=== PATIENT | female | born 1940 | race Caucasian/White ===

== ENCOUNTER 2021-01-31 23:58 | Inpatient (IN) | payer MEDICARE, SELFPAY ==
[2021-01-31] VITALS (14 sets, daily range): BP systolic 95–143; BP diastolic 55–81; PULSE 92–123; RESP 16–20; TEMP 36.6–37.3; O2SAT 93–99; BMI 26.4
--- NOTE | ~2021-01-31 | US_ITS ---
EXAMINATION: US pelvic limited EXAM DATE: 02/02/2021 14:36 INDICATION: Blood clots in the catheter. Recent bladder tumor removed. TECHNIQUE: Pelvic transabdominal sonogram was performed. There are multiple grayscale and Doppler im ages available for interpretation. Correlation is made to CT scan from yesterday. FINDINGS: There is Richey catheter within the bladder, with homogeneously hypoechoic material partiall y surrounding the Richey balloon anchor. Could be proteinaceous urine. I suspect blood clot would typi milan be more heterogeneous, but correlate with urinalysis. Exam is limited from overlying small yenni l. IMPRESSION: Mildly distended bladder with diffusely homogeneously hypoechoic fluid, could be protein aceous urine or blood in urine. Clot would more typically be heterogeneous, but exam is limited from overlying small bowel. Reviewed, dictated and finalized at location A. IMPRESSION: Mildly distended bladder with diffusely homogeneously hypoechoic f luid, could be proteinaceous urine or blood in urine. Clot would more typically be heterogeneous, but exam is limited from overlying small bowel.
--- NOTE | ~2021-01-31 | XR_ITS ---
XR chest 1V portable DATE: 02/04/2021 09:57 INDICATION: Shortness of breath, new onset TECHNIQUE: Portable AP chest on 02/04/2021 at 0951 hours COMPARISON: CT chest abdomen pelvis FINDINGS: Cardiomegaly. Aortic arch calcification. There is asymmetric prominence overlying right hilar area. No hilar mass lesion or lymphadenopathy is noted on the 02/01/2021 CT chest examination. Consider possible superimposed consolidation. There is interval patchy infiltrate in the mid and particularly lower lung zones. Pulmonary vascularity appears within normal limits. Minimal if any pleural effusion. No pneumothorax. Bilateral glenohumeral osteoarthritis. IMPRESSION: Cardiomegaly Bilateral mid and lower lung infiltrates, particularly overlying right hilar area and both lower lung s Reviewed, dictated and finalized at location A. IMPRESSION: Cardiomegaly Bilateral mid and lower lung infiltrates, particularly overlying right hilar ar ea and both lower lungs
--- NOTE | ~2021-01-31 | CT_ITS ---
EXAMINATION: CT chest abdomen pelvis wo con EXAM DATE: 02/01/2021 15:10 INDICATION: Staging of bladder cancer. TECHNIQUE: Spiral CT of the chest, abdomen and pelvis was performed without contrast. Axial, davidson l and sagittal images were reviewed. Coronal maximum intensity pixel images of chest reviewed. The dose-length product (DLP) for this examination was 852.02 mGy-cm. The exposure was tailored accordin g to patient size (auto mA exposure control), and iterative reconstruction (ASIR) was used as additio nal dose reduction technique. There is no prior study for comparison. FINDINGS: CHEST: There is pleural-based left lower lobe lobular opacity measuring about 1.5 cm, could be infec tious or postinfectious with a couple of satellite nodules. Can't exclude malignancy. Several right-s ided nodules 3 mm or less most likely postinfectious. There is moderate-sized pericardial effusion. The interventricular septum is perceptible, suggesting patient is anemic. Tracheobronchial tree is patent. There is no mediastinal, hilar or axillary lymphadenopathy. There is no pneumothorax. There is cardiomegaly. The main, central pulmonary arteries are dilated which can indicate elevated p ulmonary arterial pressure, pulmonary arterial hypertension. There is mild to moderate coronary art erial calcification, arterial sclerosis. ABDOMEN PELVIS: Bilateral adrenal gland nodularity, could be adenomas but attention to this on follow -up. The liver, spleen, adrenal glands and pancreas are otherwise unremarkable. Gallbladder is unre markable. No biliary obstruction. There are bilateral renal lesions most likely cysts and hemorrhag ic cysts. Can't exclude solid renal mass in the setting. There is mild to moderate right-sided hydrou reteronephrosis to the UVJ. Richey catheter within a collapsed bladder, with bladder gas. Some amount of pelvic prolapse is present. There is some thickening of the bladder base wall suspected. The uter us is not identified and has likely been surgically resected. The bladder is unremarkable. There is no retroperitoneal or pelvic lymphadenopathy. Tortuosity of the abdominal aorta. The appendix is not positively visualized. There is no pericecal inflammatory change to suggest appe ndicitis. The stomach and small bowel are unremarkable. There is moderate amount of colonic stool. There is rectosigmoid resection with a left lower quadrant colostomy. No free intraperitoneal gas. Large lesion within the L4 vertebral body with fat attenuation, and thickened trabeculation, a heman gioma. There are no osteoblastic or osteolytic lesions identified. 3 right hip lag screws. There is m oderate lumbar levoscoliosis, mild to moderate thoracic dextroscoliosis. Advanced lumbar spondylosis. IMPRESSION: 1. No definite metastatic disease. 2. Left lower lobe 1.4 cm lobular opacity, could be infectious or postinfectious. Malignancy also po ssible; recommend PET/CT or 3 month follow-up chest, abdomen pelvis CT. 3. Bilateral adrenal nodularity, most likely adenomas but attention to this on follow-up CT. 4. Bilateral renal cysts and hemorrhagic cysts. Can't exclude solid mass. 5. Mild to moderate right hydroureteronephrosis to the UVJ. 6. Bladder wall thickening inferiorly. Some pelvic prolapse. 7. Cardiomegaly. Moderate pericardial effusion. 8. Colostomy. Reviewed, dictated and finalized at location A. IMPRESSION: 1. No definite metastatic disease. 2. Left lower lobe 1.4 cm lobular opacity, could be infectious or postinfectio us. Malignancy also possible; recommend PET/CT or 3 month follow-up chest, abdo men pelvis CT. 3. Bilateral adrenal nodularity, most likely adenomas but attention to this on follow-up CT. 4. Bilateral renal cys
--- NOTE | ~2021-01-31 | XR_ITS ---
XR abdomen/kub 1V DATE: 02/04/2021 12:45 INDICATION: Epigastric abdominal pain. Bladder surgery 5 days ago. Status post colostomy 40 years ago . TECHNIQUE: Portable supine AP views COMPARISON: 02/01/2021 CT chest abdomen pelvis FINDINGS: Left colostomy leg. No bowel obstruction is evident. No visceromegaly is detected. There are several pins in the proximal right femur. There is rotatory levoscoliosis and severe degene rative disc disease lumbar spine. There is dextroscoliosis and degenerative spurring of the thoracic spine. Cardiomegaly. (Moderate pericardial effusion was documented on 02/01/2021 CT examination.) Aortic arch calcification. IMPRESSION: Nonspecific abdomen Reviewed, dictated and finalized at Location A. Reviewed, dictated and finalized at location A. IMPRESSION: Nonspecific abdomen
--- NOTE | 2021-01-31 12:25 | ADMGEN ---
This patient, Tosiha Devine, was admitted to Medical Room 349-01. Patient/family oriented to hospital policies and general routines including ID bracelet, bed and alarms, visiting hours, pain management, procedures, bathroom and other care routines, personal items, smoking policy, room service/diet, and visiting hours. Information on how to activate the Rapid Response Team has been discussed. Patient/Family are encouraged to report perceived risks to care and to ask questions if they do not understand what they are told or what they should do.
--- NOTE | 2021-01-31 14:26 | WPDHPUPDATE1 ---
History and Physical Update Update Date/Time: 01/31/21 14:26 History and Physical has been reviewed, including an updated exam of the patient. There are NO changes in the patient's condition. Risks, benefits, and alternatives have been discussed and questions answered. Patient agrees to proceed with procedure.
--- NOTE | 2021-01-31 14:26 | WPDANESEPPF ---
Anes - Initial Pre Proc Eval Procedure: Operation Date: 01/31/21 16:45 Proposed Procedures p Cystoscopy, Evacuation Bladder Clots - Librado Amaro MD s Possible Trans Urethral Resection Bladder Tumor - Librado Amaro MD Date/Time: 01/31/21 14:26 Surgeon: Juana Cruz MD Pre Op Diagnosis: Bladder Tumor Patient Data Age: 80 Gender: F Height: 1.68 m Weight: 74.2 kg Allergies Allergy/AdvReac Type Severity Reaction Status Date / Time Sulfa (Sulfonamide Allergy Itching Verified 01/31/21 12:34 Antibiotics) Home Medications Medication Instructions Recorded Confirmed Type PreserVision AREDS 1 tablet PO DAILY 01/31/21 01/31/21 History aspirin 81 mg PO DAILY 01/31/21 01/31/21 History atorvastatin 40 mg PO DAILY 01/31/21 01/31/21 History cholecalciferol (vitamin D3) 25 mcg PO DAILY 01/31/21 01/31/21 History [Vitamin D3] digoxin 125 mcg PO DAILY 01/31/21 01/31/21 History diltiazem HCl 180 mg PO DAILY 01/31/21 01/31/21 History furosemide 40 mg PO DAILY 01/31/21 01/31/21 History insulin lispro [Humalog Alexis 1 unit SUBCUT DAILY 01/31/21 01/31/21 History KwikPen U-100] liraglutide [Victoza 2-Miguelito] 1.8 mg SUBCUT DAILY 01/31/21 01/31/21 History metformin 1,000 mg PO BID 01/31/21 01/31/21 History metoprolol succinate 12.5 mg PO BID 01/31/21 01/31/21 History pantoprazole [Protonix] 40 mg IV DAILY 01/31/21 01/31/21 History polysaccharide iron complex 150 mg PO BID 01/31/21 01/31/21 History [Ferrex 150] potassium chloride 20 meq PO DAILY 01/31/21 01/31/21 History raloxifene 60 mg PO DAILY 01/31/21 01/31/21 History sertraline 50 mg PO DAILY 01/31/21 01/31/21 History sitagliptin [Januvia] 50 mg PO DAILY 01/31/21 01/31/21 History Patient hx anesthesia problems: none Family hx anesthesia problems: none PMFSH Past Medical History Medical History (Updated 01/31/21 @ 14:34 by Caitlyn Boss APRN) Atrial fibrillation CAD (coronary artery disease) CHF (congestive heart failure) Colon cancer Depression Diabetes Diastolic dysfunction HTN (hypertension) Hyperlipidemia Mitral regurgitation MARÍA (obstructive sleep apnea) Family History Family History Mother Alzheimer's dementia Sibling Breast cancer Bladder cancer Sibling Bone cancer Social History Social History Smoking status: Never smoker Alcohol intake: never Substance use: never Spiritual care concerns: No Anes - Eval Final PreProcedure Day of Procedure 01/31/21 14:26 Patient weight: overweight Heart: regular rate and rhythm Lungs: clear to auscultation and normal air movement Airway: Mallampati scale class II Neurological: alert and oriented Last oral intake: >/= 8 hours ASA classification: IV Emergent: no Anesthetic plan: proceed Anesthesia type and monitoring: general GIVS and LMA Informed Consent: The patient's anesthetic plan and its attendant risks and benefits were discussed with the patient/family/POA. Questions were solicited and answers provided to the satisfaction of the patient/family/POA.
--- NOTE | 2021-01-31 14:26 | WPDURCON ---
Assessment and Plan Assessment and plan (1) Gross hematuria: Code(s): R31.0 - Gross hematuria Status: Acute Assessment and Plan: Will need a urine culture to rule out infection at some point. Plan to go to the OR today: Cystoscopy, bladder clot evacuation, possible TURBT. Obtain consent and keep NPO. Irrigated with 800cc of NS at the bedside, I pulled out a large amount of blood clots without resolution and I was unable to clear the urine. 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 She had what was thought to be a UTI the week prior and was treated with Macrobid but then developed dysuria and gross hematuria following her antibiotics, she became weak, SOB and dizzy and went back to her PCP yesterday when he sent her to the ER. She has a history of recently being anemic and a HGB of 6.[address] Her CT abdomen/pelvis done yesterday at [place] showed gross hematuria and clots in the bladder with a bladder mass in the right posterolateral bladder wall measuring 4.7cm and mild right hydronephrosis but without any renal stones. Her Creatinine at [place] today was 1.28 which is slightly improved from the day before when it was 1.51, WBC today was 10.1 and UA shows >20 RBC's but is negative for WBC's or nitrates. She denies any history of hematuria or UTI's and was not aware of this bladder tumor. Initially a 16fr catheter was placed but then was replaced by a 3 way contreras to start CBI, she has had a total of 5 3L bags since beginning it prior to transfer last night, her urine is still red in color, but draining to gravity. She is not noting any abdominal distention or tenderness, just pain in the urethra. I irrigated 800cc of NS manually at the bedside and continued to pull large amounts of blood clots from her bladder without resolution. CBI was stopped. Review of Systems Cardiovascular: Cardiovascular: Denies chest pain Respiratory: Respiratory: Reports no additional respiratory complaints Gastrointestinal: Gastrointestinal: Denies abdominal pain, Denies nausea and Denies vomiting Genitourinary: Genitourinary: Reports hematuria, Reports dysuria, Denies pelvic pain and Denies flank pain PMFSH Past Medical History Medical History (Updated 01/31/21 @ 14:34 by Caitlyn Boss APRN) Atrial fibrillation CAD (coronary artery disease) CHF (congestive heart failure) Colon cancer Depression Diabetes Diastolic dysfunction HTN (hypertension) Hyperlipidemia Mitral regurgitation MARÍA (obstructive sleep apnea) Family History Family History Mother Alzheimer's dementia Sibling Breast cancer Bladder cancer Sibling Bone cancer Social History Social History Smoking status: Never smoker Alcohol intake: never Substance use: never Spiritual care concerns: No Meds Home Medications and Allergies Home Medications Medication Instructions Recorded Confirmed Type PreserVision AREDS 1 tablet PO DAILY 01/31/21 01/31/21 History aspirin 81 mg PO DAILY 01/31/21 01/31/21 History atorvastatin 40 mg PO DAILY 01/31/21 01/31/21 History cholecalciferol (vitamin D3) 25 mcg PO DAILY 01/31/21 01/31/21 History [Vitamin D3] digoxin 125 mcg PO DAILY 01/31/21 01/31/21 History diltiazem HCl 180 mg PO DAILY 01/31/21 01/31/21 History furosemide 40 mg PO DAILY 01/31/21 01/31/21 History insulin lispro [Humalog Alexis 1 unit SUBCUT DAILY 01/31/21 01/31/21 Hist
--- NOTE | 2021-01-31 14:48 | PC.NURSE ---
Patient to pre-op via hospital bed.
[2021-01-31] MEDS: LACTATED RINGERS 1,000 ML 30 ML IV CONT (14:59)
[2021-01-31] MEDS: ceFAZolin SODIUM 1 GM VIAL 2 GM IV PUSH (15:19)
--- NOTE | 2021-01-31 15:24 | SUR.PREOP ---
Notified OR gambling broker Sania that patient blood sugar was not checked in pre-op area. No blood sugar in chart from this hospital stay.
[2021-01-31 15:42] LABS: Glucose Point of Care 159 (65-105)
[2021-01-31] MEDS: LIDOCAINE HCL 2% GEL UROJET 10 ML PKG MUCOUS MEM (15:46)
--- NOTE | 2021-01-31 16:00 | PM.IMHP ---
H&P: HPI History of Present Illness Date/Time: 01/31/21 16:00 Patient is 80 y/o patient was initially seen by her primary care provider and was treated for UTI and hematuria with oral abx for 10 days, patient was seen by her PCP yesterday with c/o persistent pain, dysuira and hematuria, patient stated she was very weak and hgb was 6.9 and patient was admitted in the hospital, to further evaluate patient had CT scan of abdomen and pelvis and showed patient has bladder wall tumor, urologist was contacted and patient was sent to [facility] for further evaluation, patient states the pain and hematuria are persisting, patient denies any chest pain palpitation fever or chills, will be seen by urology service and further recommendation to follow. Chief Complaint: Hematuria Review of Systems Review of Systems: All systems reviewed & are unremarkable except as noted in HPI and below PMFSH Past Medical History Medical History (Updated 01/31/21 @ 14:34 by Caitlyn Boss APRN) Atrial fibrillation CAD (coronary artery disease) CHF (congestive heart failure) Colon cancer Depression Diabetes Diastolic dysfunction HTN (hypertension) Hyperlipidemia Mitral regurgitation MARÍA (obstructive sleep apnea) Family History Family History Mother Alzheimer's dementia Sibling Breast cancer Bladder cancer Sibling Bone cancer Social History Social History Smoking status: Never smoker Alcohol intake: never Substance use: never Spiritual care concerns: No Meds Home Medications and Allergies Home Medications Medication Instructions Recorded Confirmed Type PreserVision AREDS 1 tablet PO DAILY 01/31/21 01/31/21 History aspirin 81 mg PO DAILY 01/31/21 01/31/21 History atorvastatin 40 mg PO DAILY 01/31/21 01/31/21 History cholecalciferol (vitamin D3) 25 mcg PO DAILY 01/31/21 01/31/21 History [Vitamin D3] digoxin 125 mcg PO DAILY 01/31/21 01/31/21 History diltiazem HCl 180 mg PO DAILY 01/31/21 01/31/21 History furosemide 40 mg PO DAILY 01/31/21 01/31/21 History insulin lispro [Humalog Alexis 1 unit SUBCUT DAILY 01/31/21 01/31/21 History KwikPen U-100] liraglutide [Victoza 2-Miguelito] 1.8 mg SUBCUT DAILY 01/31/21 01/31/21 History metformin 1,000 mg PO BID 01/31/21 01/31/21 History metoprolol succinate 12.5 mg PO BID 01/31/21 01/31/21 History pantoprazole [Protonix] 40 mg IV DAILY 01/31/21 01/31/21 History polysaccharide iron complex 150 mg PO BID 01/31/21 01/31/21 History [Ferrex 150] potassium chloride 20 meq PO DAILY 01/31/21 01/31/21 History raloxifene 60 mg PO DAILY 01/31/21 01/31/21 History sertraline 50 mg PO DAILY 01/31/21 01/31/21 History sitagliptin [Januvia] 50 mg PO DAILY 01/31/21 01/31/21 History Allergies Allergy/AdvReac Type Severity Reaction Status Date / Time Sulfa (Sulfonamide Allergy Itching Verified 01/31/21 12:34 Antibiotics) Vital Signs Vital Signs - 24 hr 01/31/21 14:34 01/31/21 15:04 Temperature 98.2 F 99.1 F Pulse Rate 119 H 105 H Respiratory Rate 16 16 Blood Pressure 107/60 127/74 Pulse Oximetry 96 99 Exam Narrative: Exam Narrative: Elderly frail Patient is comfortable, NAD HEENT: eyes are clear and none icteric LUNGS:CTA HEART: RR S1S2 ABD: BS+, diffusely tender colostomy bag. Lower extremities: no edema SKIN: nonjaundiced Neuro: grossly intact. 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
--- NOTE | 2021-01-31 16:04 | PM.PROC ---
Procedure Note - Detailed Date of procedure: 01/31/21 Pre-op diagnosis: Bladder Tumor Post-op diagnosis: same (Clot retention, large unresectable bladder tumor along the right floor and lateral wall) Procedure performed: Cysto with clot evacuation, transurethral resection of large bladder tumor with fulguration Description of procedure: Patient is taken the operative suite and correctly identified. Once anesthesia was obtained she was placed in dorsal lithotomy position and prepped and draped usual sterile fashion. Prior Richey was removed. Twenty-two Salvadorean scope was inserted the bladder. Using a Kayleen we went ahead and evacuated out approximately 500 cc of clot. Reinspection revealed a tumor along the left lateral wall measuring approximately 2 cm. She also had a more aggressive appearing tumor along the right floor and lateral wall which was abutting the right ureteral orifice. We resected as much of this tumor as we could safely do at this setting. 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 We fulgurated the base of the tumor with a rollerball. There was good hemostasis at termination of procedure. Specimen was sent for analysis. Twenty-two Salvadorean [address] was placed with CBI after 2% viscous lidocaine was inserted urethra. Patient is taken recovery stable condition. Anesthesia: GLMA Surgeon: Librado Amaro MD Drains: Yes Packing: No Pathology: yes Complications: No immediate complications Condition: stable Disposition: PACU
[2021-01-31 16:53] LABS: Glucose Point of Care 166 (65-105)
--- NOTE | 2021-01-31 17:48 | PC.NURSE ---
Patient returned from post op via hospital bed.
[2021-01-31] MEDS: POLYSACCHARIDE IRON COMPLEX 150 MG CAPSULE PO (17:58)
[2021-01-31] MEDS: metFORMIN HCL 500 MG TABLET 1000 MG PO (17:58)
--- NOTE | 2021-01-31 18:51 | PC.NURSE ---
Regarding issue with medications needing acknowledged still in the MAR I have spoken with the pharmacist over Vocera and she stated she is aware that the order from [facility] reads Humalog Jenniferpen Subcutaneous: Solution Pen-injector 200 unit/ml, 1 unit daily. I have paperwork from [facility] reading those exact words. My reply from the pharmacist was ILLOGICAL! I offered to send a fax of the exact papers stating how the order reads and she declined. I also had the paperwork reviewed by LIZZETTE Mooney who is on the floor with me today.
[2021-01-31] MEDS: HYDROcodone/acetaminophen (*CRX) 5-325 MG TABLET 1 TAB PO (21:29)
[2021-01-31] MEDS: METOPROLOL SUCCINATE EXT REL 12.5 MG TABCR PO (21:29)
[2021-01-31 21:44] LABS: Glucose Point of Care 235 (65-105)
[2021-02-01] VITALS (14 sets, daily range): BP systolic 112–133; BP diastolic 47–68; PULSE 87–125; RESP 16–18; TEMP 36.5–37.2; O2SAT 94–99
[2021-02-01] MEDS: HYDROcodone/acetaminophen (*CRX) 5-325 MG TABLET 1 TAB PO ×2 (06:21→20:14)
--- NOTE | 2021-02-01 06:28 | PC.NURSE ---
Pt became hostile towards staff at 0230, and hostile behavior continued for remainder of shift stacker. When staff enters her room to assist her she is argumentative, unwilling to allow staff to touch her to assist in movement, or to even speak to educate pt on need for staff assistance. 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 Both the monotyper and RN spent long periods of time her room throughout shift to try and understand and meet her needs. PT still continued to be verbally hostile and unwilling to let staff help her.
[2021-02-01 07:36] LABS: Alanine Aminotransferase 13 U/L (4-35); Albumin Level 3.3 g/dL (3.5-5.1); Alkaline Phosphatase 62 U/L (38-126); Anion Gap 5 mmol/L (8-16); Aspartate Amino Transferase 18 U/L (14-36); Bilirubin,Total 0.1 mg/dL (0.2-1.3); Blood Urea Nitrogen 29 mg/dL (7-17); Calcium 8.2 mg/dL (8.4-10.2); Carbon Dioxide 31 mmol/L (22-30); Chloride 97 mmol/L (98-107); Estimated CRCL calculation 30 ml/min; Estimated Glomerular Filt Rate 43; Glucose 275 mg/dL (65-105); Sodium 133 mmol/L (137-145)
[2021-02-01 07:54] LABS: Glucose Point of Care 267 (65-105)
[2021-02-01] MEDS: METOPROLOL SUCCINATE EXT REL 12.5 MG TABCR PO ×2 (08:08→20:15)
[2021-02-01] MEDS: metFORMIN HCL 500 MG TABLET 1000 MG PO ×2 (08:09→17:16)
[2021-02-01] MEDS: ASPIRIN 81 MG ENTERIC TABLET PO (08:09)
[2021-02-01] MEDS: ATORVASTATIN 40 MG TABLET PO (08:09)
[2021-02-01] MEDS: dilTIAZem HCL CD 180 MG CAP.ER.24H PO (08:10)
[2021-02-01] MEDS: PANTOPRAZOLE SODIUM IV 40 MG VIAL IVPB (08:10)
[2021-02-01] MEDS: CHOLECALCIFEROL 1,000 UNITS TABLET 1000 UNITS PO (08:10)
[2021-02-01] MEDS: FUROSEMIDE 40 MG TABLET PO (08:10)
[2021-02-01] MEDS: OPTI-GEN TAB 1 TABLET PO (08:10)
[2021-02-01] MEDS: POTASSIUM CHLORIDE 20 MEQ TABLET PO (08:10)
[2021-02-01] MEDS: RALOXIFENE HCL (*CHEMO) 60 MG TABLET PO (08:10)
[2021-02-01] MEDS: SERTRALINE HCL 50 MG TABLET PO (08:10)
[2021-02-01] MEDS: DIGOXIN TAB 125 MCG TABLET PO (08:11)
[2021-02-01] MEDS: INSULIN ASPART (*BKC) 100 UNITS/ML SUB-Q (08:12)
--- NOTE | 2021-02-01 08:17 | WPDANESPN ---
Anes - Prog Note Post-Op Date/Time: 02/01/21 08:17 Cardiovascular status: normal Respiratory status: normal Airway patency: baseline Mental status: baseline Post-Op hydration status: normal Vital Signs: Last Vital Signs Temp 36.6 C 02/01/21 04:26 Pulse 118 H 02/01/21 08:11 Resp 18 02/01/21 04:26 BP 113/59 L 02/01/21 04:26 Pulse Ox 99 02/01/21 04:26 Pain Score (VAS): 0/10. Patient resting in bed at time of assessment, appears comfortable. PCT at bedside. I/O: Intake & Output 01/31/21 02/01/21 02/01/21 23:59 07:59 15:59 Intake Total 1100 350 Output Total 2650 990 Balance -1550 -640 Laboratory Tests 02/01/21 07:18 01/31/21 01/31/21 01/31/21 15:37 16:51 21:05 Sodium Potassium Chloride Carbon Dioxide Anion Gap BUN Creatinine Estim Creat Clear Calc Estimated GFR Glucose POC Capillary Glucose 159 H 166 H 235 H Calcium Total Bilirubin AST ALT Alkaline Phosphatase Total Protein Albumin 02/01/21 02/01/21 07:18 07:51 Sodium 133 L Potassium 4.0 Chloride 97 L Carbon Dioxide 31 H Anion Gap 5 L BUN 29 H Creatinine 1.20 H Estim Creat Clear Calc 30 Estimated GFR 43 L Glucose 275 H POC Capillary Glucose 267 H Calcium 8.2 L Total Bilirubin 0.1 L AST 18 ALT 13 Alkaline Phosphatase 62 Total Protein 6.0 L Albumin 3.3 L Post-procedural complaints: none Patient Feedback: Patient satisfied with anesthetic care.
--- NOTE | 2021-02-01 08:28 | PC.NURSE ---
Pt persistent on not allowing nursing staff to drain/measure stool output.
[2021-02-01 08:42] LABS: Magnesium 1.8 mg/dL (1.6-2.3)
[2021-02-01] MEDS: POLYSACCHARIDE IRON COMPLEX 150 MG CAPSULE PO ×2 (09:40→17:16)
--- NOTE | 2021-02-01 09:41 | PC.NURSE ---
Pt is not wanting to keep bed alarm on, reiterated to pt the need of the bed alarm due to having the CBI tubing and catheter. Charge nurse Latasha Forbes to come up to talk with pt at pt request.
--- NOTE | 2021-02-01 10:06 | PC.NURSE ---
Spoke with Dr. Leahy office , Pt's Doctor, about the insulin lispro order. Per the office pt has not been prescribe humalog pen since 2018. Office stated they will confirm this with Dr. Leahy and call me back.
[2021-02-01 10:26] LABS: Hemoglobin 7.6 g/dL (12.0-15.0); Mean Corpuscular HGB Conc 31.7 g/dl (32-36); Mean Corpuscular Hemoglobin 27.8 pg (26-34); Mean Corpuscular Volume 87.9 fl (80-100); Mean Platelet Volume 8.4 fl (7.4-10.4); Platelet Count Result 263 k/mm3 (150-375); Red Blood Count 2.73 M/mm3 (4.2-5.4); White Blood Count 10.4 K/mm3 (4.5-10.0)
[2021-02-01 11:59] LABS: Glucose Point of Care 95 (65-105)
--- NOTE | 2021-02-01 13:44 | PM.IMPN ---
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 02/01 patient was seen by urologist on 01/31 and was taken to OR and had surgically removed bladder wall tumor. this morning patient stats she is feeling better, hematuria has resolved and has no c/o of abdomen pain, pathology of the tumor is pending, will consult oncologist for their recommendations, will continue to monitor and have PT/OT evaluate the patient and further recommendation to follow. (2) Gross hematuria: Code(s): R31.0 - Gross hematuria Status: Acute Assessment and Plan: Most likely secondary to bladder tumor patient is seen by urology service further recommendation (3) Diabetes: Code(s): E11.9 - Type 2 diabetes mellitus without complications Status: Acute Assessment and Plan: Will continue home regimen and monitor with sliding scale (4) HTN (hypertension): Code(s): I10 - Essential (primary) hypertension Status: Acute Assessment and Plan: Will continue home regimen and monitor (5) Atrial fibrillation: Code(s): I48.91 - Unspecified atrial fibrillation Status: Acute Assessment and Plan: Rate is above 100 most likely secondary to pain and stress will continue diltiazem and digoxin and monitor Subjective Date/time seen: 02/01/21 13:44 Patient is 80 y/o patient was initially seen by her primary care provider and was treated for UTI and hematuria with oral abx for 10 days, patient was seen by her PCP yesterday with c/o persistent pain, dysuira and hematuria, patient stated she was very weak and hgb was 6.9 and patient was admitted in the hospital, to further evaluate patient had CT scan of abdomen and pelvis and 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 02/01 patient was seen by urologist on 01/31 and was taken to OR and had surgically removed bladder wall tumor. this morning patient stats she is feeling better, hematuria has resolved and has no c/o of abdomen pain, pathology of the tumor is pending, will consult oncologist for their recommendations, will continue to monitor and have PT/OT evaluate the patient and further recommendation to follow. Review of Systems Review of Systems: All systems reviewed & are unremarkable except as noted in HPI and below Exam Narrative: Exam Narrative: Elderly frail Patient is comfortable, NAD HEENT: eyes are clear and none icteric LUNGS:CTA HEART: RR S1S2 ABD: BS+, diffusely tender colostomy bag. Lower extremities: no edema SKIN: nonjaundiced Neuro: grossly intact. Objective Data Vital Signs Vital Signs: Vital Signs - 24 hr 01/31/21 14:34 01/31/21 15:04 01/31/21 16:08 Temperature 98.2 F 99.1 F 98.9 F Pulse Rate 119 H 105 H 123 H Respiratory Rate 16 16 20 Blood Pressure 107/60 127/74 108/55 L Pulse Oximetry 96 99 98 01/31/21 16:20 01/31/21 16:35
--- NOTE | 2021-02-01 14:45 | WPDUROPN2 ---
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 Dr. Amaro did remove as much as possible which was sent to Pathology for further identification. She will be notified with the pathology results and set up to see us as an outpatient. (2) Blood clot in bladder: Code(s): N32.89 - Other specified disorders of bladder Status: Acute Assessment and Plan: Resolved, all removed during procedure yesterday. (3) Gross hematuria: Code(s): R31.0 - Gross hematuria Status: Acute Assessment and Plan: Cleared, CBI was turned off. Ok to restart CBI if urine starts to become bloody again, then wean to off if clear. No further evaluation at this time. Subjective Subjective Date/Time Seen: 02/01/21 14:45 POD #1 Cysto with clot evacuation, transurethral resection of large bladder tumor with fulguration She is doing much better, urine is yellow on slow CBI, she denies abdominal pain or tenderness and is tolerating her diet well. Review of Systems Cardiovascular: Cardiovascular: Denies chest pain Respiratory: Respiratory: Reports no additional respiratory complaints Gastrointestinal: Gastrointestinal: Denies abdominal pain, Reports loose stools (has colostomy), Denies nausea and Denies vomiting Genitourinary: Genitourinary: Denies hematuria Exam Resp: Effort & Inspection: normal respiratory effort Cardio: Rate: tachycardic GI: GI Palp: Yes Soft to palpation and No Tenderness to palpation present (GI) : General: Yes no CVA tenderness Urinary Catheter: Urinary Catheter: patent and draining and urine clear Extrem: General: no edema Objective Data Vital Signs Vital Signs: Vital Signs - 24 hr 01/31/21 15:04 01/31/21 16:08 01/31/21 16:20 Temperature 99.1 F 98.9 F Pulse Rate 105 H 123 H 116 H Respiratory Rate 16 20 20 Blood Pressure 127/74 108/55 L 121/64 Pulse Oximetry 99 98 98 01/31/21 16:35 01/31/21 16:50 01/31/21 17:10 Temperature Pulse Rate 112 H 97 92 Respiratory Rate 20 18 18 Blood Pressure 95/75 L 111/76 Pulse Oximetry 98 95 96 01/31/21 17:25 01/31/21 17:40 01/31/21 17:55 Temperature 98.2 F Pulse Rate 100 107 H 100 Respiratory Rate 19 20 20 Blood Pressure 104/65 99/56 L 115/72 Pulse Oximetry 93 94 97 01/31/21 18:05 01/31/21 18:35 01/31/21 20:55 Temperature 97.8 F 97.9 F 98.7 F Pulse Rate 118 H 120 H 104 H Respiratory Rate 18 18 17 Blood Pressure 108/59 L 115/74 143/81 H Pulse Oximetry 98 98 98 01/31/21 21:29 02/01/21 04:25 02/01/21 04:26 Temperature 98 F Pulse Rate 104 H 119 H 100 Respiratory Rate 18 Blood Pressure 113/59 L Pulse Oximetry 99 02/01/21 08:00 02/01/21 08:08 02/01/21 08:11 Temperature Pulse Rate 119 H 118 H 118 H Respiratory Rate Blood Pressure Pulse Oximetry 02/01/21 09:59 02/01/21 12:00 Temperature 98.9 F Pulse Rate 114 H 102 H Respiratory Rate 16 Blood Pressure 133/68 Pulse Oximetry 97 Intake/Output Intake/Output: Intake & Output 01/29/21 01/30/21 01/31/21 02/01/21 23:59 23:59 23:59 23:59 Intake Total 1100 995 Output Total 2650 990 Balance -1550 5 Meds/Results Medications: Active Medications Generic Name Dose Route Start Last Admin Trade Name Freq PRN Reason Stop Dose Admin Hydrocodone Bitart/Acetaminophen 1 tab 01/31/21 20:27 02/01/21 06:21 Hydrocodone/Acetaminophen (*Crx) 5-325 Mg Tablet PO 1 tab Q4H PRN Administration Pain Rated 4-6 Aspirin 81 mg 02/01/21 09:00 02/01/21 08:09 Aspirin 81 Mg Enteric Tablet PO 03/03/21 09:01 81 mg DAILY ZAK Administration Atorvastatin Calcium 40 mg 02/01/21 09:00 02/01/21 08:09 Atorvastatin 40 Mg Tablet PO 40 mg DAILY ZAK Administration Dextrose 12.5 gm 01/31/21 20:27 Dextrose 50% 25 Gm/50 Ml [place]
--- NOTE | 2021-02-01 15:16 | PDONCCN ---
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 Admitted from [facility] for new bladder tumor. She was treated for UTI and hematuria with oral abx for 10 days, then seen by her PCP on 01/31 reporting persistent pain, dysuria and hematuria, as well as weakness. Hgb was found to be 6.9 and Cr=1.51 and patient was admitted to [facility]. She had CT scan of abdomen and pelvis there which allegedly showed gross hematuria and clots in the bladder with a bladder mass in the right posterolateral bladder wall measuring 4.7cm and mild right hydronephrosis but without any renal stones. Urology at [place] was contacted and the patient was transferred here for further care. Initially a 16fr catheter was placed but then was replaced by a 3 way contreras to start CBI, but urine was still red in color. Bladder was irrigated with 800cc of NS manually at the bedside and continued to pull large amounts of blood clots from her bladder without resolution. CBI was stopped. Pt taken to OR for Cysto with clot evacuation and transurethral resection of large bladder tumor with fulguration. Reinspection revealed a tumor along the left lateral wall measuring approximately 2 cm. She also had a more aggressive appearing tumor along the right floor and lateral wall which was abutting the right ureteral orifice. Urology resected as much of this tumor as they could safely do. Most likely muscle-invasive. Tissue sent out for pathologic evaluation. She feels well, continues with contreras catheter but this is mainly draining clear urine now. She feels much better and has no other complaints at this time. Review of Systems - Review of Systems All systems reviewed & are unremarkable except as noted in HPI and [facility] Medical History: Medical History (Last Reviewed 01/31/21 @ 14:32 by Caitlyn Boss, MANAGER POLICY) Atrial fibrillation CAD (coronary artery disease) CHF (congestive heart failure) Colon cancer Depression Diabetes Diastolic dysfunction HTN (hypertension) Hyperlipidemia Mitral regurgitation MARÍA (obstructive sleep apnea) Family History: Family History (Last Reviewed 01/31/21 @ 14:32 by Caitlyn Boss APRN) Mother Alzheimer's dementia Sibling Breast cancer Bladder cancer Sibling Bone cancer - Social History Social History: Social History (Last Updated 02/01/21 @ 15:30 by Muan Holliday MD) Alcohol Use: Alcohol intake: never Substance Use: Substance use: never Others: Spiritual care concerns: No Living Arrangements: Living arrangements: with family Oppucation/Education: Occupation/Education: retired Smoking Status: Smoking status: Never smoker Meds Home Medications Medication Instructions Recorded Confirmed Type PreserVision AREDS 1 tablet PO DAILY 01/31/21 01/31/21 History aspirin 81 mg PO DAILY 01/31/21 01/31/21 History atorvastatin 40 mg PO DAILY 01/31/21 01/31/21 History cholecalciferol (vitamin D3) 25 mcg PO DAILY 01/31/21 01/31/21 History [Vitamin D3] digoxin 125 mcg PO DAILY 01/31/21 01/31/21 History diltiazem HCl 180 mg PO DAILY 01/31/21 01/31/21 History furosemide 60 mg PO DAILY 01/31/21 02/01/21 History insulin lispro [Humalog Alexis 1 unit SUBCUT DAILY 01/31/21 01/31/21 History KwikPen U-100] liraglutide [Victoza 2-Miguelito] 1.8 mg SUBCUT DAILY 01/31/21 01/31/21 History metformin 1,000 mg PO BID 01/31/21 01/31/21 History metoprolol succinate 12.5 mg PO BID 01/31/21 01/31/21 History pantoprazole [Protonix] 40 mg IV DAILY 01/31/21 01/31/21 History polysaccharide iron complex 150 mg PO BID 01/31/21 01/31/21 History [Ferrex 150] potassium chloride 20 meq PO DAILY 01/31/21 01/31/21 History raloxifene 60 mg PO DAILY 01/04
[2021-02-01 16:44] LABS: Glucose Point of Care 127 (65-105)
[2021-02-01 20:50] LABS: Glucose Point of Care 171 (65-105)
[2021-02-02] VITALS (18 sets, daily range): BP systolic 110–149; BP diastolic 50–75; PULSE 76–114; RESP 16–18; TEMP 36.1–37.2; O2SAT 81–98
[2021-02-02 06:46] LABS: Hematocrit 21.8 % (37.0-47.0); Mean Corpuscular HGB Conc 31.2 g/dl (32-36); Mean Corpuscular Hemoglobin 27.2 pg (26-34); Mean Corpuscular Volume 87.2 fl (80-100); Mean Platelet Volume 8.3 fl (7.4-10.4); Platelet Count Result 240 k/mm3 (150-375); White Blood Count 10.6 K/mm3 (4.5-10.0)
[2021-02-02 06:49] LABS: Hemoglobin 6.8 g/dL (12.0-15.0)
[2021-02-02 07:00] LABS: Alanine Aminotransferase 11 U/L (4-35); Albumin Level 3.2 g/dL (3.5-5.1); Alkaline Phosphatase 91 U/L (38-126); Anion Gap 7 mmol/L (8-16); Aspartate Amino Transferase 16 U/L (14-36); Bilirubin,Total < 0.1 mg/dL (0.2-1.3); Blood Urea Nitrogen 30 mg/dL (7-17); Calcium 8.2 mg/dL (8.4-10.2); Carbon Dioxide 27 mmol/L (22-30); Chloride 99 mmol/L (98-107); Estimated CRCL calculation 28 ml/min; Estimated Glomerular Filt Rate 39; Glucose 123 mg/dL (65-105); Potassium 4.4 mmol/L (3.4-5.0); Sodium 133 mmol/L (137-145)
[2021-02-02 07:07] LABS: Magnesium 1.8 mg/dL (1.6-2.3)
[2021-02-02 07:18] LABS: Glucose Point of Care 114 (65-105)
--- NOTE | 2021-02-02 09:05 | WPDUROPN2 ---
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 Amaro will notify patient once they are resulted. She will follow up with Dr. Goodson as an outpatient to discuss treatment options. Appreciate Oncology input. (2) Blood clot in bladder: Code(s): N32.89 - Other specified disorders of bladder Status: Acute Assessment and Plan: Resolved. (3) Gross hematuria: Code(s): R31.0 - Gross hematuria Status: Acute Assessment and Plan: CBI was restarted last night d/t slightly bloody urine and small clots, it is clear and khanh/pink in color today. Continue CBI until clear then ok to wean to off. Will receive blood today d/t persistent anemia. Subjective Subjective Date/Time Seen: 02/02/21 09:05 POD #2 Cysto with clot evacuation, transurethral resection of large bladder tumor with fulguration She is doing much better, urine is pink on slow CBI, she denies abdominal pain or tenderness and is tolerating her diet well. Her urine became slightly bloody overnight with some small clots, therefore CBI was restarted. Her HGB is 6.8 today and she will be receiving a blood transfusion. Oncology has been consulted as well. Review of Systems Cardiovascular: Cardiovascular: Denies chest pain Respiratory: Respiratory: Reports no additional respiratory complaints Gastrointestinal: Gastrointestinal: Denies abdominal pain, Denies nausea and Denies vomiting Genitourinary: Genitourinary: Reports hematuria and Denies flank pain Exam Resp: Effort & Inspection: normal respiratory effort Cardio: Rate: regular rate GI: GI Palp: Yes Soft to palpation and No Tenderness to palpation present (GI) : General: Yes no CVA tenderness Urinary Catheter: Urinary Catheter: patent and draining, urine clear and urine pink Extrem: General: no edema Objective Data Vital Signs Vital Signs: Vital Signs - 24 hr 02/01/21 09:59 02/01/21 12:00 02/01/21 14:00 Temperature 98.9 F 98.8 F Pulse Rate 114 H 102 H 111 H Respiratory Rate 16 16 Blood Pressure 133/68 112/62 Pulse Oximetry 97 98 02/01/21 16:00 02/01/21 18:00 02/01/21 20:00 Temperature 97.7 F Pulse Rate 87 113 H 98 Respiratory Rate 16 Blood Pressure 115/47 L Pulse Oximetry 98 02/01/21 20:07 02/01/21 20:15 02/01/21 23:54 Temperature 98.2 F Pulse Rate 125 H 109 H 99 Respiratory Rate 18 Blood Pressure 124/53 L Pulse Oximetry 94 02/02/21 04:00 02/02/21 04:24 02/02/21 08:00 Temperature 97.9 F Pulse Rate 76 84 97 Respiratory Rate 18 Blood Pressure 110/50 L Pulse Oximetry 96 Intake/Output Intake/Output: Intake & Output 01/30/21 01/31/21 02/01/21 02/02/21 23:59 23:59 23:59 23:59 Intake Total 1100 1955 350 Output Total 2650 1865 3000 Balance -1550 90 -2650 Meds/Results Medications: Active Medications Generic Name Dose Route Start Last Admin Trade Name Freq PRN Reason Stop Dose Admin Hydrocodone Bitart/Acetaminophen 1 tab 01/31/21 20:27 02/01/21 20:14 Hydrocodone/Acetaminophen (*Crx) 5-325 Mg Tablet PO 1 tab Q4H PRN Administration Pain Rated 4-6 Aspirin 81 mg 02/01/21 09:00 02/01/21 08:09 Aspirin 81 Mg Enteric Tablet PO 03/03/21 09:01 81 mg DAILY ZAK Administration Atorvastatin Calcium 40 mg 02/01/21 09:00 02/01/21 08:09 Atorvastatin 40 Mg Tablet PO 40 mg DAILY ZAK Administration Dextrose 12.5 gm 01/31/21 20:27 Dextrose 50% 25 Gm/50 Ml Syringe IV PUSH PRN PRN Hypoglycemia Protocol Digoxin 125 mcg 02/01/21 09:00 02/01/21 08:11 Digoxin Tab 125 Mcg Tablet PO 125 mcg DAILY ZAK Administration Diltiazem HCl 180 mg 02/01/21 09:00 02/01/21 08:10 Diltiazem Hcl Cd 180 Mg Cap.Er.24h PO 180 mg DAILY ZAK Administration Furosemide 40 mg 02/01/21 09:00 02/01/21 08:10
[2021-02-02] MEDS: SODIUM CHLORIDE 0.9% IV 250 ML 30 ML IV CONT (09:19)
[2021-02-02] MEDS: TUBING, BLOOD PLUM PUMP TUBING 1 EACH XX (09:25)
[2021-02-02] MEDS: POLYSACCHARIDE IRON COMPLEX 150 MG CAPSULE PO ×2 (09:46→16:58)
[2021-02-02] MEDS: POTASSIUM CHLORIDE 20 MEQ TABLET PO (09:46)
[2021-02-02] MEDS: SERTRALINE HCL 50 MG TABLET PO (09:46)
[2021-02-02] MEDS: CHOLECALCIFEROL 1,000 UNITS TABLET 1000 UNITS PO (09:46)
[2021-02-02] MEDS: METOPROLOL SUCCINATE EXT REL 12.5 MG TABCR PO ×2 (09:46→20:38)
[2021-02-02] MEDS: OPTI-GEN TAB 1 TABLET PO (09:46)
[2021-02-02] MEDS: metFORMIN HCL 500 MG TABLET 1000 MG PO ×2 (09:46→16:58)
[2021-02-02] MEDS: ATORVASTATIN 40 MG TABLET PO (09:46)
[2021-02-02] MEDS: DIGOXIN TAB 125 MCG TABLET PO (09:47)
[2021-02-02] MEDS: RALOXIFENE HCL (*CHEMO) 60 MG TABLET PO (09:47)
[2021-02-02] MEDS: dilTIAZem HCL CD 180 MG CAP.ER.24H PO (09:47)
[2021-02-02] MEDS: FUROSEMIDE 40 MG TABLET PO (09:47)
[2021-02-02] MEDS: ASPIRIN 81 MG ENTERIC TABLET PO (09:54)
[2021-02-02 11:39] LABS: Glucose Point of Care 248 (65-105)
--- NOTE | 2021-02-02 11:44 | WPDONCPN ---
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 CT c/a/p without contrast due to elevated Cr showed a 1.4 cm LLL lung lesion. No other suspicious sites of metastatic involvement. - Reviewed CT results with her. - Path from bladder specimen pending. - Discussed obtaining PET/CT as outpt. Order placed today. If suspicious will consider biopsy for confirmation and staging. - Has appointment with Dr. Real on 02/14/21 12:45pm, patient aware. - Continue PRBC transfusions per physician attending. - Time Spent With Patient Total time spent is greater than 50% in coordination of care (as documented) at patient's floor/unit and/or counseling patient: 15 - 25 minutes Subjective Interval history: Overnight started having blood in the urine again and clots. Hb dropped to 6.8. Receiving PRBCs and bladder irrigation re-started. Pt reports recent fatigue, sob and dizziness to be temporally related to hematuria. No other complaints today. Review of Systems - Review of Systems All systems reviewed & are unremarkable except as noted in HPI and bel - Genitourinary Reports blood in urine Exam Vital signs: Temp Pulse Resp BP Pulse Ox 36.8 C 110 H 16 121/50 L 97 02/02/21 10:57 02/02/21 10:57 02/02/21 10:57 02/02/21 10:57 02/02/21 10:57 - Constitutional no acute distress - Routine HEENT Exam Head: Present: normocephalic ENT: Present: mucous membranes moist - Routine Respiratory Exam Present: CTAB - Routine Cardiovascular Exam Cardiovascular: Present: tachycardia - Routine Abdominal Exam Present: soft PN: Objective Data - Labs CBC & Chem 7: 02/02/21 06:17 02/02/21 06:17 Labs: Laboratory Results - last 24 hr 02/01/21 02/01/21 02/01/21 11:57 16:40 20:12 WBC RBC Hgb Hct MCV MCH MCHC RDW Plt Count MPV Sodium Potassium Chloride Carbon Dioxide Anion Gap BUN Creatinine Estim Creat Clear Calc Estimated GFR Glucose POC Capillary Glucose 95 127 H 171 H Calcium Magnesium Total Bilirubin AST ALT Alkaline Phosphatase Total Protein Albumin Blood Type Antibody Screen Crossmatch 02/02/21 02/02/21 02/02/21 06:17 06:17 06:17 WBC 10.6 H RBC 2.50 L Hgb 6.8 L* Hct 21.8 L MCV 87.2 MCH 27.2 MCHC 31.2 L RDW 15.0 H Plt Count 240 MPV 8.3 Sodium 133 L Potassium 4.4 Chloride 99 Carbon Dioxide 27 Anion Gap 7 L BUN 30 H Creatinine 1.30 H Estim Creat Clear Calc 28 Estimated GFR 39 L Glucose 123 H POC Capillary Glucose Calcium 8.2 L Magnesium 1.8 Total Bilirubin < 0.1 L AST 16 ALT 11 Alkaline Phosphatase 91 Total Protein 6.0 L Albumin 3.2 L Blood Type Antibody Screen Crossmatch 02/02/21 02/02/21 02/02/21 07:09 07:38 11:32 WBC RBC Hgb Hct MCV MCH MCHC RDW Plt Count MPV Sodium Potassium Chloride Carbon Dioxide Anion Gap BUN Creatinine Estim Creat Clear Calc Estimated GFR Glucose POC Capillary Glucose 114 H 248 H Calcium Magnesium Total Bilirubin AST ALT Alkaline Phosphatase Total Protein Albumin Blood Type O Negative Antibody Screen Negative Crossmatch See Detail
--- NOTE | 2021-02-02 11:56 | PC.NURSE ---
Pt wanting to wait to eat lunch once blood is complete, will recheck blood sugar at that time.
[2021-02-02 13:05] LABS: Glucose Point of Care 180 (65-105)
--- NOTE | 2021-02-02 13:16 | PCOTNOTE ---
Patient refusing OT evaluation this date stating that she is too tired and has been having one thing after another going on. Patient continued to refuse despite encouragement and explanation of importance of therapy/movement. Patient states she will not participate today and to come back tomorrow.
[2021-02-02 15:23] LABS: Hematocrit 25.5 % (37.0-47.0)
--- NOTE | 2021-02-02 16:06 | PM.IMPN ---
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 Status: Acute Assessment and Plan: 02/02/21 16:06 Patient is 80 y/o patient was initially seen by her primary care provider and was treated for UTI and hematuria with oral abx for 10 days, patient was seen by her PCP yesterday with c/o persistent pain, dysuira and hematuria, patient stated she was very weak and hgb was 6.9 and patient was admitted in the hospital, to further evaluate patient had CT scan of abdomen and pelvis and showed patient has bladder wall tumor, urologist was contacted and patient was sent to [facility] for further evaluation, patient states the pain and hematuria are persisting, patient denies any chest pain palpitation fever or chills, will be seen by urology service and further recommendation to follow. 02/01 patient was seen by urologist on 01/31 and was taken to OR and had surgically removed bladder wall tumor. this morning patient stats she is feeling better, hematuria has resolved and has no c/o of abdomen pain, pathology of the tumor is pending, will consult oncologist for their recommendations, will continue to monitor and have PT/OT evaluate the patient and further recommendation to follow. 02/02 patient hemoglobin is trending down to 6.8 and patient has hematuria CBI was started, patient will receive 1 unit of pack RBC, seen by oncology CT scan of the chest did not show any metastasis recommending PET scan as an outpatient and patient will follow-up with oncologist on February 14, 2021, patient with bladder wall tumor status post partial removal pending pathology report, clinically patient is stable will continue to monitor and further recommendation to follow will have a PT OT evaluate the patient. (2) Gross hematuria: Code(s): R31.0 - Gross hematuria Status: Acute Assessment and Plan: Most likely secondary to bladder tumor patient is seen by urology service further recommendation (3) Diabetes: Code(s): E11.9 - Type 2 diabetes mellitus without complications Status: Acute Assessment and Plan: Will continue home regimen and monitor with sliding scale (4) HTN (hypertension): Code(s): I10 - Essential (primary) hypertension Status: Acute Assessment and Plan: Will continue home regimen and monitor (5) Atrial fibrillation: Code(s): I48.91 - Unspecified atrial fibrillation Status: Acute Assessment and Plan: Rate is above 100 most likely secondary to pain and stress will continue diltiazem and digoxin and monitor Subjective Date/time seen: 02/02/21 16:06 Patient is 80 y/o patient was initially seen by her primary care provider and was treated for UTI and hematuria with oral abx for 10 days, patient was seen by her PCP yesterday with c/o persistent pain, dysuira and hematuria, patient stated she was very weak and hgb was 6.9 and patient was admitted in the hospital, to further evaluate patient had CT scan of abdomen and pelvis and showed patient has bladder wall tumor, urologist was contacted and patient was sent to [facility] for further evaluation, patient states the pain and hematuria are persisting, patient denies any chest pain palpitation fever or chills, will be seen by urology service and further recommendation to follow. 02/01 patient was seen by urologist on 01/31 and was taken to OR and had surgically removed bladder wall tumor. this morning patient stats she is feeling better, hematuria has resolved and has no c/o of abdomen pain, pathology of the tumor is pending, will consult oncologist for their recommendations, will continue to monitor and have PT/OT evaluate the patient and further recommendation to follow. 02/02 patient hemoglobin is trending down to 6.8 and patient has hematuria CBI was started, patient will receive 1 unit of pack RBC, seen by oncology CT scan of the chest did not show any
[2021-02-02 16:53] LABS: Glucose Point of Care 152 (65-105)
[2021-02-02] MEDS: PANTOPRAZOLE SODIUM IV 40 MG VIAL IVPB (16:58)
[2021-02-03] VITALS (18 sets, daily range): BP systolic 123–150; BP diastolic 66–84; PULSE 80–128; RESP 16–22; TEMP 36.1–36.7; O2SAT 92–98
[2021-02-03 00:21] LABS: Glucose Point of Care 235 (65-105)
[2021-02-03] MEDS: HYDROcodone/acetaminophen (*CRX) 5-325 MG TABLET 1 TAB PO ×2 (01:57→21:04)
[2021-02-03 05:36] LABS: Hematocrit 24.1 % (37.0-47.0); Hemoglobin 7.4 g/dL (12.0-15.0); Mean Corpuscular HGB Conc 30.7 g/dl (32-36); Mean Corpuscular Hemoglobin 26.9 pg (26-34); Mean Corpuscular Volume 87.6 fl (80-100); Mean Platelet Volume 8.3 fl (7.4-10.4); Platelet Count Result 252 k/mm3 (150-375); Red Blood Count 2.75 M/mm3 (4.2-5.4); Red Cell Distribution Width 15.3 % (11.5-14.5); White Blood Count 10.6 K/mm3 (4.5-10.0)
[2021-02-03 05:58] LABS: Alanine Aminotransferase 12 U/L (4-35); Albumin Level 3.3 g/dL (3.5-5.1); Alkaline Phosphatase 96 U/L (38-126); Anion Gap 5 mmol/L (8-16); Aspartate Amino Transferase 17 U/L (14-36); Bilirubin,Total < 0.1 mg/dL (0.2-1.3); Blood Urea Nitrogen 25 mg/dL (7-17); Calcium 8.6 mg/dL (8.4-10.2); Carbon Dioxide 29 mmol/L (22-30); Chloride 103 mmol/L (98-107); Estimated CRCL calculation 33 ml/min; Estimated Glomerular Filt Rate 48; Glucose 152 mg/dL (65-105); Potassium 4.4 mmol/L (3.4-5.0); Sodium 137 mmol/L (137-145)
[2021-02-03 07:50] LABS: Glucose Point of Care 139 (65-105)
[2021-02-03] MEDS: SODIUM CHLORIDE 0.9% IV 250 ML 30 ML IV CONT (09:44)
[2021-02-03] MEDS: POLYSACCHARIDE IRON COMPLEX 150 MG CAPSULE PO ×2 (09:45→17:16)
[2021-02-03] MEDS: PANTOPRAZOLE SODIUM IV 40 MG VIAL IVPB (09:45)
[2021-02-03] MEDS: CHOLECALCIFEROL 1,000 UNITS TABLET 1000 UNITS PO (09:45)
[2021-02-03] MEDS: OPTI-GEN TAB 1 TABLET PO (09:45)
[2021-02-03] MEDS: ASPIRIN 81 MG ENTERIC TABLET PO (09:45)
[2021-02-03] MEDS: ATORVASTATIN 40 MG TABLET PO (09:45)
[2021-02-03] MEDS: POTASSIUM CHLORIDE 20 MEQ TABLET PO (09:45)
[2021-02-03] MEDS: dilTIAZem HCL CD 180 MG CAP.ER.24H PO (09:47)
[2021-02-03] MEDS: METOPROLOL SUCCINATE EXT REL 12.5 MG TABCR PO (09:47)
[2021-02-03] MEDS: FUROSEMIDE 40 MG TABLET PO (09:47)
[2021-02-03] MEDS: DIGOXIN TAB 125 MCG TABLET PO (09:47)
[2021-02-03] MEDS: RALOXIFENE HCL (*CHEMO) 60 MG TABLET PO (09:48)
[2021-02-03] MEDS: SERTRALINE HCL 50 MG TABLET PO (09:48)
--- NOTE | 2021-02-03 10:03 | PCOTNOTE ---
OT evaluation attempted. Hold this AM per nursing as patient is receiving 2 units of blood. OT will attempt evaluation at later time.
[2021-02-03] MEDS: metFORMIN HCL 500 MG TABLET 1000 MG PO ×2 (11:25→17:16)
--- NOTE | 2021-02-03 11:29 | WPDUROPN2 ---
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 It is an unresectable tumor. Will refer patient to Dr. Goodson as an outpatient for further management. (2) Blood clot in bladder: Code(s): N32.89 - Other specified disorders of bladder Status: Acute Assessment and Plan: Urine clear with minimal CBI. Richey catheter irrigates well without any evidence of clots. Continued to wean CBI to off as tolerated. Once hemodynamically stable can be discharged home from our standpoint follow-up with Dr. Goodson as an outpatient. Subjective Subjective Date/Time Seen: 02/03/21 11:29 Post Op day: 3 Principal diagnosis: Gross hematuria with bladder tumor unresectable Interval history: Patient is doing well overall however her hemoglobin continues to be somewhat low. Urine is clear with minimal CBI. Bladder ultrasound revealed some echogenic material in the bladder. I personally irrigated the bladder today without any difficulty. No clots retrieved. Exam Const: General: cooperative Objective Data Vital Signs Vital Signs: Vital Signs - 24 hr 02/02/21 11:57 02/02/21 12:00 02/02/21 12:47 Temperature 37.1 C 36.4 C L Pulse Rate 97 88 84 Respiratory Rate 16 16 Blood Pressure 135/64 114/50 L Pulse Oximetry 98 97 02/02/21 14:00 02/02/21 16:00 02/02/21 18:00 Temperature 36.6 C 37.2 C Pulse Rate 99 114 H 94 Respiratory Rate 16 16 Blood Pressure 116/59 L 140/58 L Pulse Oximetry 97 96 02/02/21 20:00 02/02/21 20:38 02/02/21 21:49 Temperature 36.1 C L Pulse Rate 99 95 97 Respiratory Rate 18 Blood Pressure 137/75 Pulse Oximetry 96 02/03/21 00:00 02/03/21 01:58 02/03/21 04:00 Temperature 36.2 C L Pulse Rate 80 92 113 H Respiratory Rate 16 Blood Pressure 133/78 Pulse Oximetry 95 02/03/21 06:00 02/03/21 08:00 02/03/21 09:47 Temperature 36.1 C L Pulse Rate 88 113 H 126 H Respiratory Rate 18 Blood Pressure 141/78 H Pulse Oximetry 96 02/03/21 09:52 02/03/21 10:15 02/03/21 11:15 Temperature 36.1 C L 36.4 C L 36.6 C Pulse Rate 126 H 117 H 114 H Respiratory Rate 18 18 16 Blood Pressure 150/79 H 148/84 H 150/80 H Pulse Oximetry 98 98 95 Intake/Output Intake/Output: Intake & Output 01/31/21 02/01/21 02/02/21 02/03/21 23:59 23:59 23:59 23:59 Intake Total 1100 1955 850 0 Output Total 2650 1865 5050 2500 Balance -1550 90 -4200 -2500 Meds/Results Medications: Active Medications Generic Name Dose Route Start Last Admin Trade Name Freq PRN Reason Stop Dose Admin Hydrocodone Bitart/Acetaminophen 1 tab 01/31/21 20:27 02/03/21 01:57 Hydrocodone/Acetaminophen (*Crx) 5-325 Mg Tablet PO 1 tab Q4H PRN Administration Pain Rated 4-6 Aspirin 81 mg 02/01/21 09:00 02/03/21 09:45 Aspirin 81 Mg Enteric Tablet PO 03/03/21 09:01 81 mg DAILY ZAK Administration Atorvastatin Calcium 40 mg 02/01/21 09:00 02/03/21 09:45 Atorvastatin 40 Mg Tablet PO 40 mg DAILY ZAK Administration Dextrose 12.5 gm 01/31/21 20:27 Dextrose 50% 25 Gm/50 Ml Syringe IV PUSH PRN PRN Hypoglycemia Protocol Digoxin 125 mcg 02/01/21 09:00 02/03/21 09:47 Digoxin Tab 125 Mcg Tablet PO 125 mcg DAILY ZAK Administration Diltiazem HCl 180 mg 02/01/21 09:00 02/03/21 09:47 Diltiazem Hcl Cd 180 Mg Cap.Er.24h PO 180 mg DAILY ZAK Administration Furosemide 40 mg 02/01/21 09:00 02/03/21 09:47 Furosemide 40 Mg Tablet PO 40 mg DAILY ZAK Administration Glucagon 1 mg 01/31/21 20:27 Glucagon For Inj 1 Mg Vial IM PRN PRN Hypoglycemia Protocol Glucose 15 gm 01/31/21 20:27 Glucose Oral Gel 15 Gm Of Glucse In 37.5 Gm Tube PO PRN PRN Hypoglycemia Protocol Dextrose 1,000 mls @ 100 mls/hr 01/31/21 20:27 Dextrose 5% 1,000 Ml IVPB
[2021-02-03 11:50] LABS: Glucose Point of Care 211 (65-105)
[2021-02-03] MEDS: INSULIN ASPART (*BKC) 100 UNITS/ML SUB-Q (12:25)
--- NOTE | 2021-02-03 12:25 | PM.IMPN ---
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 Status: Acute Assessment and Plan: 02/03/21 12:25 Patient is 80 y/o patient was initially seen by her primary care provider and was treated for UTI and hematuria with oral abx for 10 days, patient was seen by her PCP yesterday with c/o persistent pain, dysuira and hematuria, patient stated she was very weak and hgb was 6.9 and patient was admitted in the hospital, to further evaluate patient had CT scan of abdomen and pelvis and showed patient has bladder wall tumor, urologist was contacted and patient was sent to [facility] for further evaluation, patient states the pain and hematuria are persisting, patient denies any chest pain palpitation fever or chills, will be seen by urology service and further recommendation to follow. 02/01 patient was seen by urologist on 01/31 and was taken to OR and had surgically removed bladder wall tumor. this morning patient stats she is feeling better, hematuria has resolved and has no c/o of abdomen pain, pathology of the tumor is pending, will consult oncologist for their recommendations, will continue to monitor and have PT/OT evaluate the patient and further recommendation to follow. 02/02 patient hemoglobin is trending down to 6.8 and patient has hematuria CBI was started, patient will receive 1 unit of pack RBC, seen by oncology CT scan of the chest did not show any metastasis recommending PET scan as an outpatient and patient will follow-up with oncologist on February 14, 2021, patient with bladder wall tumor status post partial removal pending pathology report, clinically patient is stable will continue to monitor and further recommendation to follow will have a PT OT evaluate the patient. 02/03 Today patient states feeling better, her hemoglobin was trending down to 6.8 and patient was given 1 unit pack RBC however today patient hemoglobin 7.6 and patient complained of being tired and blurry vision, will give 2 units of pack RBC today, patient was seen her urologist bladder was irrigated and there was no blood clots, patient had ultrasound of the bladder did show echogenic finding but the tumor is unresectable, patient is referred oncologist radiologist for further evaluation recommendation, patient is clinically stable will reassess patient hemoglobin if remains clinically stable plan to discharge the patient SNF. (2) Gross hematuria: Code(s): R31.0 - Gross hematuria Status: Acute Assessment and Plan: Most likely secondary to bladder tumor patient is seen by urology service further recommendation (3) Diabetes: Code(s): E11.9 - Type 2 diabetes mellitus without complications Status: Acute Assessment and Plan: Will continue home regimen and monitor with sliding scale (4) HTN (hypertension): Code(s): I10 - Essential (primary) hypertension Status: Acute Assessment and Plan: Will continue home regimen and monitor (5) Atrial fibrillation: Code(s): I48.91 - Unspecified atrial fibrillation Status: Acute Assessment and Plan: Rate is above 100 most likely secondary to pain and stress will continue diltiazem and digoxin and monitor Subjective Date/time seen: 02/03/21 12:25 Patient is 80 y/o patient was initially seen by her primary care provider and was treated for UTI and hematuria with oral abx for 10 days, patient was seen by her PCP yesterday with c/o persistent pain, dysuira and hematuria, patient stated she was very weak and hgb was 6.9 and patient was admitted in the hospital, to further evaluate patient had CT scan of abdomen and pelvis and showed patient has bladder wall tumor, urologist was contacted and patient was sent to [facility] for further evaluation, patient states the pain and hematuria are persisting, patient denies any chest pain palpitation fever or chills, will be seen by
[2021-02-03] MEDS: METOPROLOL TARTRATE 12.5 MG TABLET PO (14:38)
[2021-02-03 15:36] LABS: Hematocrit 29.6 % (37.0-47.0); Hemoglobin 9.5 g/dL (12.0-15.0)
[2021-02-03 16:57] LABS: Glucose Point of Care 183 (65-105)
[2021-02-03] MEDS: METOPROLOL SUCCINATE EXT REL 25 MG TABCR PO (21:04)
[2021-02-03 22:26] LABS: Glucose Point of Care 215 (65-105)
[2021-02-04] VITALS (13 sets, daily range): BP systolic 112–133; BP diastolic 68–74; PULSE 80–99; RESP 16–18; TEMP 36.6–36.7; O2SAT 97–100
[2021-02-04 06:07] LABS: Hematocrit 29.5 % (37.0-47.0); Hemoglobin 9.3 g/dL (12.0-15.0); Mean Corpuscular HGB Conc 31.5 g/dl (32-36); Mean Corpuscular Hemoglobin 28.1 pg (26-34); Mean Corpuscular Volume 89.1 fl (80-100); Mean Platelet Volume 8.2 fl (7.4-10.4); Platelet Count Result 271 k/mm3 (150-375); Red Blood Count 3.31 M/mm3 (4.2-5.4); Red Cell Distribution Width 15.6 % (11.5-14.5); White Blood Count 13.2 K/mm3 (4.5-10.0)
[2021-02-04 06:29] LABS: Alanine Aminotransferase 16 U/L (4-35); Albumin Level 3.6 g/dL (3.5-5.1); Alkaline Phosphatase 84 U/L (38-126); Anion Gap 4 mmol/L (8-16); Aspartate Amino Transferase 21 U/L (14-36); Bilirubin,Total 0.2 mg/dL (0.2-1.3); Blood Urea Nitrogen 27 mg/dL (7-17); Calcium 8.8 mg/dL (8.4-10.2); Carbon Dioxide 33 mmol/L (22-30); Chloride 99 mmol/L (98-107); Estimated CRCL calculation 30 ml/min; Estimated Glomerular Filt Rate 43; Glucose 158 mg/dL (65-105); Potassium 4.6 mmol/L (3.4-5.0); Sodium 136 mmol/L (137-145)
[2021-02-04 08:40] LABS: Glucose Point of Care 140 (65-105)
[2021-02-04] MEDS: metFORMIN HCL 500 MG TABLET 1000 MG PO ×2 (08:46→17:30)
[2021-02-04] MEDS: PANTOPRAZOLE SODIUM IV 40 MG VIAL IVPB (08:46)
[2021-02-04] MEDS: ATORVASTATIN 40 MG TABLET PO (08:46)
[2021-02-04] MEDS: ASPIRIN 81 MG ENTERIC TABLET PO (08:46)
[2021-02-04] MEDS: OPTI-GEN TAB 1 TABLET PO (08:46)
[2021-02-04] MEDS: FUROSEMIDE 40 MG TABLET PO (08:46)
[2021-02-04] MEDS: DIGOXIN TAB 125 MCG TABLET PO (08:47)
[2021-02-04] MEDS: CHOLECALCIFEROL 1,000 UNITS TABLET 1000 UNITS PO (08:47)
[2021-02-04] MEDS: POLYSACCHARIDE IRON COMPLEX 150 MG CAPSULE PO ×2 (08:47→17:30)
[2021-02-04] MEDS: POTASSIUM CHLORIDE 20 MEQ TABLET PO (08:47)
[2021-02-04] MEDS: METOPROLOL SUCCINATE EXT REL 25 MG TABCR PO ×2 (08:47→21:17)
[2021-02-04] MEDS: SERTRALINE HCL 50 MG TABLET PO (08:47)
[2021-02-04] MEDS: dilTIAZem HCL CD 180 MG CAP.ER.24H PO (08:47)
[2021-02-04] MEDS: RALOXIFENE HCL (*CHEMO) 60 MG TABLET PO (08:48)
--- NOTE | 2021-02-04 08:58 | PC.NURSE ---
Attempted to help patient set up tray for breakfast. Patient became verbally abusive about my attempts to help. I stated I will leave and let her eat in peace. I will continue to check on her and monitor her as needed.
[2021-02-04] MEDS: FUROSEMIDE INJ 40 MG/4 ML VIAL IV PUSH (09:52)
--- NOTE | 2021-02-04 11:11 | WPDUROPN2 ---
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 magana to discuss options (2) Blood clot in bladder: Code(s): N32.89 - Other specified disorders of bladder Status: Acute (3) Gross hematuria: Code(s): R31.0 - Gross hematuria Status: Acute Assessment and Plan: resolved Additional Plan she may discharge at discretion of primary service from a urologic standpoint; would DC with contreras for a few days and dr malin office here can arrange for void trial Subjective Subjective Date/Time Seen: 02/04/21 11:11 Interval history: urine clear off CBI. 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 is very concerned that people are talking discharge as she is concerned about weakness, hand tingling, bowel obstrution, etc. HGB looks good at 9.3. Review of Systems Review of Systems: All systems reviewed & are unremarkable except as noted in HPI and below Exam Const: General: cooperative and no acute distress Urinary Catheter: Urinary Catheter: patent and draining and urine clear Objective Data Vital Signs Vital Signs: Vital Signs - 24 hr 02/03/21 11:15 02/03/21 12:00 02/03/21 12:15 Temperature 36.6 C 36.6 C Pulse Rate 114 H 118 H 102 H Respiratory Rate 16 18 Blood Pressure 150/80 H 140/76 Pulse Oximetry 95 98 02/03/21 12:41 02/03/21 14:00 02/03/21 14:38 Temperature 36.6 C 36.7 C Pulse Rate 103 H 128 H 116 H Respiratory Rate 17 16 Blood Pressure 133/78 123/66 Pulse Oximetry 97 92 02/03/21 16:00 02/03/21 20:00 02/03/21 21:04 Temperature Pulse Rate 100 105 H 111 H Respiratory Rate Blood Pressure Pulse Oximetry 02/03/21 22:00 02/04/21 00:00 02/04/21 02:00 Temperature 36.6 C 36.6 C Pulse Rate 114 H 95 88 Respiratory Rate 22 H 18 Blood Pressure 128/66 112/71 Pulse Oximetry 95 100 02/04/21 04:00 02/04/21 05:59 02/04/21 08:00 Temperature 36.7 C Pulse Rate 80 87 87 Respiratory Rate 16 Blood Pressure 133/68 Pulse Oximetry 97 02/04/21 08:47 02/04/21 10:25 Temperature Pulse Rate 88 Respiratory Rate Blood Pressure Pulse Oximetry 99 Intake/Output Intake/Output: Intake & Output 02/01/21 02/02/21 02/03/21 02/04/21 23:59 23:59 23:59 23:59 Intake Total 9556 413 0824 790 Output Total 1861 5050 7642 700 Balance 90 4200 -5221 90 Meds/Results Medications: Active Medications Generic Name Dose Route Start Last Admin Trade Name Freq PRN Reason Stop Dose Admin Hydrocodone Bitart/Acetaminophen 1 tab 01/31/21 20:27 02/03/21 21:04 Hydrocodone/Acetaminophen (*Crx) 5-325 Mg Tablet PO 1 tab Q4H PRN Administration Pain Rated 4-6 Aspirin 81 mg 02/01/21 09:00 02/04/21 08:46 Aspirin 81 Mg Enteric Tablet PO 03/03/21 09:01 81 mg DAILY ZAK Administration Atorvastatin Calcium 40 mg 02/01/21 09:00 02/04/21 08:46 Atorvastatin 40 Mg Tablet PO 40 mg DAILY ZAK Administration Dextrose 12.5 gm 01/31/21 20:27 Dextrose 50% 25 Gm/50 Ml Syringe IV PUSH PRN PRN Hypoglycemia Protocol Digoxin 125 mcg 02/01/21 09:00 02/04/21 08:47 Digoxin Tab 125 Mcg Tablet PO 125 mcg DAILY ZAK Administration Diltiazem HCl 180 mg 02/01/21 09:00 02/04/21 08:47 Diltiazem Hcl Cd 180 Mg Cap.Er.24h PO 180 mg DAILY ZAK Administration Furosemide 40 mg 02/01/21 09:00 02/04/21 08:46 Furosemide 40 Mg Tablet PO 40 mg DAILY ZAK Administration Glucagon 1 mg 01/31/21 20:27 Glucagon For Inj 1 Mg Vial IM PRN PRN Hypoglycemia Protocol Glucose 15 gm 01/31/21 20:27 Glucose Oral Gel 15 Gm Of Glucse In 37.5 Gm Tube PO PRN PRN Hypoglycemia Protocol Dextrose 1,000 mls @ 100 mls/hr 01/31/21 20:27 Dextrose 5% 1,000 Ml IVPB PRN PRN Hypoglycemia
[2021-02-04 12:04] LABS: Glucose Point of Care 236 (65-105)
[2021-02-04] MEDS: INSULIN ASPART (*BKC) 100 UNITS/ML SUB-Q (12:04)
--- NOTE | 2021-02-04 12:15 | PC.NURSE ---
Patient states that she feels like she can't go home. When I ask patient about her reasons why she needs to stay she becomes frustrated and gives no reasons behind her statement. She stated she has stomach pain and colon issues dating back 40 years from when she got her colostomy. She also mentioned a blockage she had 20 years ago but nothing recent or during her stay here that I can report to the doctor. Patient has been cleared from urology standpoint and physical therapy.
--- NOTE | 2021-02-04 13:40 | PM.IMPN ---
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 Status: Acute Assessment and Plan: 02/04/21 13:40 Patient is 80 y/o patient was initially seen by her primary care provider and was treated for UTI and hematuria with oral abx for 10 days, patient was seen by her PCP yesterday with c/o persistent pain, dysuira and hematuria, patient stated she was very weak and hgb was 6.9 and patient was admitted in the hospital, to further evaluate patient had CT scan of abdomen and pelvis and showed patient has bladder wall tumor, urologist was contacted and patient was sent to [facility] for further evaluation, patient states the pain and hematuria are persisting, patient denies any chest pain palpitation fever or chills, will be seen by urology service and further recommendation to follow. 02/01 patient was seen by urologist on 01/31 and was taken to OR and had surgically removed bladder wall tumor. this morning patient stats she is feeling better, hematuria has resolved and has no c/o of abdomen pain, pathology of the tumor is pending, will consult oncologist for their recommendations, will continue to monitor and have PT/OT evaluate the patient and further recommendation to follow. 02/02 patient hemoglobin is trending down to 6.8 and patient has hematuria CBI was started, patient will receive 1 unit of pack RBC, seen by oncology CT scan of the chest did not show any metastasis recommending PET scan as an outpatient and patient will follow-up with oncologist on February 14, 2021, patient with bladder wall tumor status post partial removal pending pathology report, clinically patient is stable will continue to monitor and further recommendation to follow will have a PT OT evaluate the patient. 02/03 Today patient states feeling better, her hemoglobin was trending down to 6.8 and patient was given 1 unit pack RBC however today patient hemoglobin 7.6 and patient complained of being tired and blurry vision, will give 2 units of pack RBC today, patient was seen her urologist bladder was irrigated and there was no blood clots, patient had ultrasound of the bladder did show echogenic finding but the tumor is unresectable, patient is referred oncologist radiologist for further evaluation recommendation, patient is clinically stable will reassess patient hemoglobin if remains clinically stable plan to discharge the patient SNF. 02/04 patient was seen by urologist and stable to be discharged home as her hematuria has improved and hemoglobin is stable however patient does appear to be slightly short of breath thinking the patient may have volume overload due to blood transfusion she received will give patient 1 time dose of IV Lasix 40 mg and monitor, patient also complains for abdominal pain suspect most likely secondary to surgical intervention however she feels something else is going on but denies any nausea or vomiting and ate all her breakfast to further evaluate KUB was done essentially normal, patient does not wish to be discharged today due to her abdominal discomfort and shortness of breath, will continue to monitor have physical therapy work with the patient and further recommendation to follow (2) Gross hematuria: Code(s): R31.0 - Gross hematuria Status: Acute Assessment and Plan: Most likely secondary to bladder tumor patient is seen by urology service further recommendation (3) Diabetes: Code(s): E11.9 - Type 2 diabetes mellitus without complications Status: Acute Assessment and Plan: Will continue home regimen and monitor with sliding scale (4) HTN (hypertension): Code(s): I10 - Essential (primary) hypertension Status: Acute Assessment and Plan: Will continue home regimen and monitor (5) Atrial fibrillation: Code(s): I48.91 - Unspecified atrial fibrillation Status: Acute Assessment and Plan:
[2021-02-04 16:38] LABS: Glucose Point of Care 95 (65-105)
[2021-02-04 19:34] LABS: SARS-CoV-2 RNA PCR Negative
[2021-02-04] MEDS: HYDROcodone/acetaminophen (*CRX) 5-325 MG TABLET 1 TAB PO (21:17)
[2021-02-04 21:43] LABS: Glucose Point of Care 174 (65-105)
[2021-02-05] VITALS (15 sets, daily range): BP systolic 119–138; BP diastolic 62–66; PULSE 57–129; RESP 18; TEMP 36.1–36.5; O2SAT 96–100
[2021-02-05 05:27] LABS: Hematocrit 26.5 % (37.0-47.0); Hemoglobin 8.2 g/dL (12.0-15.0); Mean Corpuscular HGB Conc 30.9 g/dl (32-36); Mean Corpuscular Hemoglobin 27.4 pg (26-34); Mean Corpuscular Volume 88.6 fl (80-100); Mean Platelet Volume 8.3 fl (7.4-10.4); Platelet Count Result 221 k/mm3 (150-375); Red Blood Count 2.99 M/mm3 (4.2-5.4); Red Cell Distribution Width 15.5 % (11.5-14.5); White Blood Count 9.9 K/mm3 (4.5-10.0)
[2021-02-05 05:51] LABS: Alanine Aminotransferase 16 U/L (4-35); Albumin Level 3.2 g/dL (3.5-5.1); Alkaline Phosphatase 67 U/L (38-126); Anion Gap 4 mmol/L (8-16); Aspartate Amino Transferase 17 U/L (14-36); Bilirubin,Total 0.1 mg/dL (0.2-1.3); Blood Urea Nitrogen 28 mg/dL (7-17); Calcium 8.6 mg/dL (8.4-10.2); Carbon Dioxide 36 mmol/L (22-30); Chloride 95 mmol/L (98-107); Estimated CRCL calculation 30 ml/min; Estimated Glomerular Filt Rate 43; Glucose 108 mg/dL (65-105); Sodium 135 mmol/L (137-145)
[2021-02-05] MEDS: METOPROLOL SUCCINATE EXT REL 25 MG TABCR PO ×2 (08:20→20:38)
[2021-02-05] MEDS: RALOXIFENE HCL (*CHEMO) 60 MG TABLET PO (08:20)
[2021-02-05] MEDS: dilTIAZem HCL CD 180 MG CAP.ER.24H PO (08:20)
[2021-02-05] MEDS: SERTRALINE HCL 50 MG TABLET PO (08:20)
[2021-02-05] MEDS: PANTOPRAZOLE SODIUM IV 40 MG VIAL IVPB (08:20)
[2021-02-05] MEDS: POTASSIUM CHLORIDE 20 MEQ TABLET PO (08:20)
[2021-02-05] MEDS: POLYSACCHARIDE IRON COMPLEX 150 MG CAPSULE PO ×2 (08:20→17:02)
[2021-02-05] MEDS: CHOLECALCIFEROL 1,000 UNITS TABLET 1000 UNITS PO (08:20)
[2021-02-05] MEDS: OPTI-GEN TAB 1 TABLET PO (08:20)
[2021-02-05] MEDS: DIGOXIN TAB 125 MCG TABLET PO (08:21)
[2021-02-05] MEDS: ASPIRIN 81 MG ENTERIC TABLET PO (08:21)
[2021-02-05] MEDS: FUROSEMIDE 40 MG TABLET PO (08:21)
[2021-02-05] MEDS: ATORVASTATIN 40 MG TABLET PO (08:21)
[2021-02-05] MEDS: metFORMIN HCL 500 MG TABLET 1000 MG PO ×2 (08:21→17:02)
--- NOTE | 2021-02-05 08:23 | PC.NURSE ---
Spoke with patient on how she feels today and how she thinks about going home since her labs are juni and xray's came back fine yesterday. She stated I feel great! I'm ready!
[2021-02-05 08:50] LABS: Glucose Point of Care 152 (65-105)
--- NOTE | 2021-02-05 09:29 | PC.NURSE ---
Addendum entered by ANA ROSA Harrison 02/05/21 09:55: No words from the patient stating that she wanted to harm herself, no words from the patient that she did not want to live anymore or be a burden to her family. No statements from patient regarding not wanting to live or any statements regarding wanting to harm herself. Original Note: Spoke to patient regarding her discussion regarding her thoughts. Patient states Why can't I breathe? Why can't I talk? Every time I eat I have to eat slowly. There's something wrong with my stomach even though my xray shows it is fine. My stomach hurts when it's empty and hurts when it's full. Patient denies telling me that she felt great this morning. Patient appears to be comfortable and in no distress regarding SOB. 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 You can't send me home. You can't make me leave when I feel like this. Patient states I have problems that started 40 years ago and I need them fixed now. The short haily that was in here earlier tried to send me home and said I need to talk to Dr. River. I already see Dr. River already. I stated to the patient that her admitting diagnosis of clots in the bladder have been resolved and that the surgeons have cleared her. The patient states You are ignoring me! These issues started 40 years ago and I need them resolved! After this statement the patient closed her eyes and ignored anything else I would say to her. ALLEN Mcneal was in the room while this conversation was happening.
--- NOTE | 2021-02-05 11:13 | P.PNIM_ITS ---
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 for further evaluation, patient states the pain and hematuria are persisting, patient denies any chest pain palpitation fever or chills, will be seen by urology service and further recommendation to follow. 02/01 patient was seen by urologist on 01/31 and was taken to OR and had surgically removed bladder wall tumor. this morning patient stats she is feeling better, hematuria has resolved and has no c/o of abdomen pain, pathology of the tumor is pending, will consult oncologist for their recommendations, will continue to monitor and have PT/OT evaluate the patient and further recommendation to follow. 02/02 patient hemoglobin is trending down to 6.8 and patient has hematuria CBI was started, patient will receive 1 unit of pack RBC, seen by oncology CT scan of the chest did not show any metastasis recommending PET scan as an outpatient and patient will follow-up with oncologist on February 14, 2021, patient with bladder wall tumor status post partial removal pending pathology report, clinically patient is stable will continue to monitor and further recommendation to follow will have a PT OT evaluate the patient. 02/03 Today patient states feeling better, her hemoglobin was trending down to 6.8 and patient was given 1 unit pack RBC however today patient hemoglobin 7.6 and patient complained of being tired and blurry vision, will give 2 units of pack RBC today, patient was seen her urologist bladder was irrigated and there was no blood clots, patient had ultrasound of the bladder did show echogenic finding but the tumor is unresectable, patient is referred oncologist radiologist for further evaluation recommendation, patient is clinically stable will reassess patient hemoglobin if remains clinically stable plan to discharge the patient SNF. 02/04 patient was seen by urologist and stable to be discharged home as her hematuria has improved and hemoglobin is stable however patient does appear to be slightly short of breath thinking the patient may have volume overload due to blood transfusion she received will give patient 1 time dose of IV Lasix 40 mg and monitor, patient also complains for abdominal pain suspect most likely secondary to surgical intervention however she feels something else is going on but denies any nausea or vomiting and ate all her breakfast to further evaluate KUB was done essentially normal, patient does not wish to be discharged today due to her abdominal discomfort and shortness of breath, will continue to monitor have physical therapy work with the patient and further recommendation to follow 02/05 patient does not appear short of breath as yesterday after receiving 1 time dose of IV Lasix her chest x-ray was essentially normal, she also had complaint abdominal KUB was done and it was essentially normal, she is eating her meals without any difficulty without any nausea or vomiting however patient keep insisting to have abdominal pain, will consult GI for further recom mendation as patient has history colon cancer and has colostomy, patient is able to ambulate with minimal assist wit
[2021-02-05 11:29] LABS: Glucose Point of Care 203 (65-105)
[2021-02-05] MEDS: INSULIN ASPART (*BKC) 100 UNITS/ML SUB-Q (11:31)
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
[2021-02-05 17:07] LABS: Glucose Point of Care 92 (65-105)
[2021-02-05 20:15] LABS: Glucose Point of Care 179 (65-105)
[2021-02-05] MEDS: HYDROcodone/acetaminophen (*CRX) 5-325 MG TABLET 1 TAB PO (20:39)
--- NOTE | 2021-02-05 22:12 | CONS_ITS ---
DATE OF CONSULTATION: 02/05/2021 HISTORY OF PRESENT ILLNESS: 80-year-old female with history of coronary artery disease, CHF, atrial fibrillation, type 2 diabetes, hypertension, hyperlipidemia, mitral regurgitation, sleep apnea, depression, colorectal cancer, status post colectomy with colostomy 40 years ago, who now presents with hematuria. I am now asked to provide GI evaluation by hospitalist service for possible abdominal pain and malfunctioning colostomy. PRIMARY CARE PROVIDER: Marry Leahy MD The patient was initially diagnosed with UTI and treated, but she continued to feel weak and came to the hospital in [place]. She was noted to be profoundly anemic. CT scan showed bladder tumor. Hemoglobin was 7. On January 31, the patient had a cystoscopy with clot removal and partial resection of bladder tumor. She has had oncology consultation and is scheduled for outpatient followup. The patient does not wish to go home and was telling hospitalist she had problems with the function of her colostomy and abdominal pain. On seeing the patient, she initially denies any abdominal pain to me, and on further questioning, she is completely tangential and refers back to events that happened between 40 and 60 years ago, most of which have nothing to do with her GI tract. She denies abdominal pain, nausea, vomiting, heartburn, trouble swallowing, loss of appetite or weight, change in ostomy output. Nurses tell me that her ostomy functions well and visually it looks normal to me. There is no bloody ostomy output or melena. There is no fever, jaundice, scleral icterus, dark urine, light stools, itching, hot or cold intolerance, chest pain, shortness of breath at rest, current hematuria, dysuria, new cough or visual changes, easy bruising, tingling of the skin, bone pain, or tremors. No endocarditis risk factors. ALLERGIES: SULFA. MEDICATIONS: See list. SOCIAL HISTORY: Nonsmoker, nondrinker. FAMILY HISTORY: Negative for GI malignancy. PHYSICAL EXAM: GENERAL: Slender elderly female lying in bed, no apparent distress. She has no lower extremity edema, jaundice, spider angioma, or palmar erythema. HEENT: Skull is normocephalic, atraumatic. Pupils nonicteric. Oropharynx clear. NECK: Supple without thyromegaly. LUNGS: Clear to auscultation. HEART: Rate and rhythm regular. S1, S2 normal. ABDOMEN: Normoactive bowel sounds. Soft, nontender, nonrigid, nondistended without hepatosplenomegaly or masses. Ostomy is in the left lower quadrant and is visually normal. The patient does not have a rectum. LABORATORY DATA: On February 05, hemoglobin 8, hematocrit 27, white count of 10, platelets 221. LFTs are normal. On February 02, hematocrit 22, MCV 87. CT scan of the abdomen and pelvis shows bladder tumor and is otherwise unremarkable for GI. ASSESSMENT AND PLAN: 1. Patient with history of colon cancer 40 years ago, status post abdominoperineal resection and permanent colostomy. Her ostomy function is fine. She is eating. She denies abdominal pain to me and has no overt evidence of abdominal pain. She cannot provide any useful history. The patient is stable for discharge in my opinion. She can follow up with GI as outpatient in [place] as needed. 2. Acute blood loss anemia secondary to hematuria on the basis of bladder tumor. She has been evaluated by Urology and Oncology who have approved her discharge and have arranged outpatient followup. Thank you for allowing me to share in the care of this patient. Case reviewed with Dr. Cruz. CHRISS BOLANOS M.D. CC:? Dr. Marry Leahy HEAD OF PARTNER DEVELOPMENT HEAD OF PARTNER DEVELOPMENT D Job #
--- NOTE | 2021-02-05 23:34 | PC.NURSE ---
laundry manager OVERCASTER offered to help patient empty out her colostomy. Charge nurse had apparently previously told day shift OVERCASTER to not allow patient to bathroom alone without OVERCASTER assistance related to care of colostomy. When the preventative maintenance technician OVERCASTER offered to help patient with emptying of colostomy bag, patient became hostile with them and refused all help. OVERCASTER left room as to honor patient's wishes.
[2021-02-06] VITALS (9 sets, daily range): BP systolic 124; BP diastolic 73; PULSE 67–100; RESP 18; TEMP 36.3; O2SAT 95–98
[2021-02-06 05:51] LABS: Hematocrit 27.5 % (37.0-47.0); Hemoglobin 8.6 g/dL (12.0-15.0); Mean Corpuscular HGB Conc 31.3 g/dl (32-36); Mean Corpuscular Hemoglobin 27.7 pg (26-34); Mean Corpuscular Volume 88.7 fl (80-100); Mean Platelet Volume 8.4 fl (7.4-10.4); Platelet Count Result 257 k/mm3 (150-375); Red Cell Distribution Width 15.3 % (11.5-14.5); White Blood Count 7.9 K/mm3 (4.5-10.0)
[2021-02-06 06:10] LABS: Alanine Aminotransferase 16 U/L (4-35); Albumin Level 3.1 g/dL (3.5-5.1); Alkaline Phosphatase 72 U/L (38-126); Anion Gap 2 mmol/L (8-16); Aspartate Amino Transferase 20 U/L (14-36); Bilirubin,Total 0.1 mg/dL (0.2-1.3); Blood Urea Nitrogen 30 mg/dL (7-17); Calcium 8.3 mg/dL (8.4-10.2); Carbon Dioxide 37 mmol/L (22-30); Chloride 96 mmol/L (98-107); Estimated CRCL calculation 33 ml/min; Estimated Glomerular Filt Rate 48; Glucose 131 mg/dL (65-105); Sodium 135 mmol/L (137-145)
[2021-02-06 06:29] LABS: Potassium 4.1 mmol/L (3.4-5.0)
[2021-02-06 07:22] LABS: Glucose Point of Care 139 (65-105)
--- NOTE | 2021-02-06 08:21 | WPDUROPN2 ---
Progress Note: A&P Assessment and Plan (1) Bladder cancer: Code(s): C67.9 - Malignant neoplasm of bladder, unspecified Status: Acute Assessment and Plan: No further intervention at this admission. Can be discharged home when stable. Will have patient follow-up with Dr. Goodson for further management of the muscle invasive bladder carcinoma. If patient is still here tomorrow may consider voiding trial in a.m.. 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 Hemodynamically stable. Creatinine stable. Review of Systems Review of Systems: All systems reviewed & are unremarkable except as noted in HPI and below Exam Resp: Effort & Inspection: normal respiratory effort Cardio: Rate: regular rate Rhythm: regular rhythm Objective Data Vital Signs Vital Signs: Vital Signs - 24 hr 02/05/21 08:29 02/05/21 10:34 02/05/21 12:00 Temperature Pulse Rate 129 H Respiratory Rate Blood Pressure Pulse Oximetry 100 97 02/05/21 14:00 02/05/21 16:00 02/05/21 20:00 Temperature 36.2 C L Pulse Rate 74 78 80 Respiratory Rate 18 Blood Pressure 126/62 Pulse Oximetry 100 02/05/21 20:38 02/05/21 21:16 02/06/21 00:00 Temperature 36.5 C Pulse Rate 81 90 83 Respiratory Rate 18 Blood Pressure 138/66 Pulse Oximetry 98 02/06/21 00:20 02/06/21 04:00 02/06/21 05:55 Temperature 36.3 C L Pulse Rate 67 88 Respiratory Rate 18 Blood Pressure 124/73 Pulse Oximetry 96 95 02/06/21 08:00 Temperature Pulse Rate 100 Respiratory Rate Blood Pressure Pulse Oximetry Intake/Output Intake/Output: Intake & Output 02/03/21 02/04/21 02/05/21 02/06/21 23:59 23:59 23:59 23:59 Intake Total 2320 1580 2130 550 Output Total 7625 4350 1800 1350 Balance -1291 -2754 330 -800 Meds/Results Medications: Active Medications Generic Name Dose Route Start Last Admin Trade Name Freq PRN Reason Stop Dose Admin Hydrocodone Bitart/Acetaminophen 1 tab 01/31/21 20:27 02/05/21 20:39 Hydrocodone/Acetaminophen (*Crx) 5-325 Mg Tablet PO 1 tab Q4H PRN Administration Pain Rated 4-6 Aspirin 81 mg 02/01/21 09:00 02/05/21 08:21 Aspirin 81 Mg Enteric Tablet PO 03/03/21 09:01 81 mg DAILY ZAK Administration Atorvastatin Calcium 40 mg 02/01/21 09:00 02/05/21 08:21 Atorvastatin 40 Mg Tablet PO 40 mg DAILY ZAK Administration Dextrose 12.5 gm 01/31/21 20:27 Dextrose 50% 25 Gm/50 Ml Syringe IV PUSH PRN PRN Hypoglycemia Protocol Digoxin 125 mcg 02/01/21 09:00 02/05/21 08:21 Digoxin Tab 125 Mcg Tablet PO 125 mcg DAILY ZAK Administration Diltiazem HCl 180 mg 02/01/21 09:00 02/05/21 08:20 Diltiazem Hcl Cd 180 Mg Cap.Er.24h PO 180 mg DAILY ZAK Administration Furosemide 40 mg 02/01/21 09:00 02/05/21 08:21 Furosemide 40 Mg Tablet PO 40 mg DAILY ZAK Administration Glucagon 1 mg 01/31/21 20:27 Glucagon For Inj 1 Mg Vial IM PRN PRN Hypoglycemia Protocol Glucose 15 gm 01/31/21 20:27 Glucose Oral Gel 15 Gm Of Glucse In 37.5 Gm Tube PO PRN PRN Hypoglycemia Protocol Dextrose 1,000 mls @ 100 mls/hr 01/31/21 20:27 Dextrose 5% 1,000 Ml IVPB PRN PRN Hypoglycemia Protocol Insulin Aspart 3 - 6 units 02/01/21 08:00 02/06/21 07:45 Insulin Aspart (*Bkc) 100 Units/Ml SUB-Q Not Given TIDWM ZAK Protocol Metformin HCl 1,000 mg 01/31/21 17:00 02/05/21 17:02 Metformin Hcl 500 Mg Tablet PO 1,000 mg BIDWM ZAK Administration Metoprolol Succinate 25 mg 02/03/21 21:00 02/05/21 20:38 Metoprolol Succinate Ext Rel 25 Mg Tabcr PO 25 mg Q12HR ZAK Administration Multivitamins/Minerals 1 tablet 02/01/21 09:00 02/05/21 08:20 Opti-Gen Tab PO 03/03/21 09:01 1 tablet DAILY ZAK Ad
[2021-02-06] MEDS: metFORMIN HCL 500 MG TABLET 1000 MG PO (08:51)
[2021-02-06] MEDS: POTASSIUM CHLORIDE 20 MEQ TABLET PO (08:52)
[2021-02-06] MEDS: POLYSACCHARIDE IRON COMPLEX 150 MG CAPSULE PO (08:52)
[2021-02-06] MEDS: RALOXIFENE HCL (*CHEMO) 60 MG TABLET PO (08:52)
[2021-02-06] MEDS: ASPIRIN 81 MG ENTERIC TABLET PO (08:52)
[2021-02-06] MEDS: CHOLECALCIFEROL 1,000 UNITS TABLET 1000 UNITS PO (08:53)
[2021-02-06] MEDS: METOPROLOL SUCCINATE EXT REL 25 MG TABCR PO (08:53)
[2021-02-06] MEDS: DIGOXIN TAB 125 MCG TABLET PO (08:53)
[2021-02-06] MEDS: SERTRALINE HCL 50 MG TABLET PO (08:53)
[2021-02-06] MEDS: OPTI-GEN TAB 1 TABLET PO (08:53)
[2021-02-06] MEDS: PANTOPRAZOLE SODIUM IV 40 MG VIAL IVPB (08:53)
[2021-02-06] MEDS: FUROSEMIDE 40 MG TABLET PO (08:53)
[2021-02-06] MEDS: dilTIAZem HCL CD 180 MG CAP.ER.24H PO (08:54)
[2021-02-06] MEDS: ATORVASTATIN 40 MG TABLET PO (08:54)
[2021-02-06 11:59] LABS: Glucose Point of Care 159 (65-105)
--- NOTE | 2021-02-06 12:20 | PM.DDS ---
Discharge Sum: Prov Provider Primary care physician: Marry Leahy MD Admitting provider: Juana Cruz MD Consults: 02/01/21 09:00 Consult to Physician Routine Comment: Spoke with Dr. Holliday @ 0943 Consulting Provider: Muna Holliday supervisor wood crew/MD group to consult: Oncology- Dr. Holliday Reason for consultation: Bladder tumor Has provider been notified: Yes 02/05/21 09:07 Consult to Physician Routine Comment: Elizabet spoke with Dr. River at 0910 today. Consulting Provider: Rj River supervisor wood crew/MD group to consult: GI Reason for consultation: abdominal pain, hx of colon CA, colostomy Has provider been notified: Yes Discharge Sum: Summary Date and Time Date of admission: 01/31/21 12:23 Additional Data Attending physician: Juana Cruz MD
--- NOTE | 2021-02-06 14:01 | PM.DS ---
DS: Admitting Diagnosis Admitting Diagnosis Admitting Diagnosis: Hematuria DS: Discharge Diagnosis Discharge Diagnosis (1) Bladder tumor: Code(s): D49.4 - Neoplasm of unspecified behavior of bladder Status: Acute Assessment and Plan: 02/05/21 11:13 Patient is 80 y/o patient was initially seen by her primary care provider and was treated for UTI and hematuria with oral abx for 10 days, patient was seen by her PCP yesterday with c/o persistent pain, dysuira and hematuria, patient stated she was very weak and hgb was 6.9 and patient was admitted in the hospital, to further evaluate patient had CT scan of abdomen and pelvis and showed patient has bladder wall tumor, urologist was contacted and patient was sent to [facility] for further evaluation, patient states the pain and hematuria are persisting, patient denies any chest pain palpitation fever or chills, will be seen by urology service and further recommendation to follow. 02/01 patient was seen by urologist on 01/31 and was taken to OR and had surgically removed bladder wall tumor. this morning patient stats she is feeling better, hematuria has resolved and has no c/o of abdomen pain, pathology of the tumor is pending, will consult oncologist for their recommendations, will continue to monitor and have PT/OT evaluate the patient and further recommendation to follow. 02/02 patient hemoglobin is trending down to 6.8 and patient has hematuria CBI was started, patient will receive 1 unit of pack RBC, seen by oncology CT scan of the chest did not show any metastasis recommending PET scan as an outpatient and patient will follow-up with oncologist on February 14, 2021, patient with bladder wall tumor status post partial removal pending pathology report, clinically patient is stable will continue to monitor and further recommendation to follow will have a PT OT evaluate the patient. 02/03 Today patient states feeling better, her hemoglobin was trending down to 6.8 and patient was given 1 unit pack RBC however today patient hemoglobin 7.6 and patient complained of being tired and blurry vision, will give 2 units of pack RBC today, patient was seen her urologist bladder was irrigated and there was no blood clots, patient had ultrasound of the bladder did show echogenic finding but the tumor is unresectable, patient is referred oncologist radiologist for further evaluation recommendation, patient is clinically stable will reassess patient hemoglobin if remains clinically stable plan to discharge the patient SNF. 02/04 patient was seen by urologist and stable to be discharged home as her hematuria has improved and hemoglobin is stable however patient does appear to be slightly short of breath thinking the patient may have volume overload due to blood transfusion she received will give patient 1 time dose of IV Lasix 40 mg and monitor, patient also complains for abdominal pain suspect most likely secondary to surgical intervention however she feels something else is going on but denies any nausea or vomiting and ate all her breakfast to further evaluate KUB was done essentially normal, patient does not wish to be discharged today due to her abdominal discomfort and shortness of breath, will continue to monitor have physical therapy work with the patient and further recommendation to follow 02/05 patient does not appear short of breath as yesterday after receiving 1 time dose of IV Lasix her chest x-ray was essentially normal, she also had complaint abdominal KUB was done and it was essentially normal, she is eating her meals without any difficulty without any nausea or vomiting however patient keep insisting to have abdominal pain, will consult GI for further recommendation as patient has history colon cancer and has colostomy, patient is able to ambulate with minimal assist with physical therapy however she is insisting not to be discharged, patient is very obnoxious and mistreating the nursing staff,
== END 2021-02-06 14:45 | disposition home or self-care (01) | DRG 669 ==
PROVIDERS: Urology; Admitting Provider Family Medicine; Visit Provider Family Medicine
PROC: 0TCB8ZZ Extirpation of Matter from Bladder, Via Natural or Artificial Opening Endoscopic (ICD-10-PCS; CPT 52001; principal; 2021-01-31 16:45)
PROC: 0TBB8ZZ Excision of Bladder, Via Natural or Artificial Opening Endoscopic (ICD-10-PCS; 2021-01-31 16:45)
DX: C67.9 Malignant neoplasm of bladder, unspecified (principal); I48.20 Chronic atrial fibrillation, unspecified; I50.32 Chronic diastolic (congestive) heart failure; D62 Acute posthemorrhagic anemia; Z20.822 Contact with and (suspected) exposure to COVID-19; I11.0 Hypertensive heart disease with heart failure; I25.10 Atherosclerotic heart disease of native coronary artery without angina pectoris; E78.5 Hyperlipidemia, unspecified; E11.9 Type 2 diabetes mellitus without complications; G47.33 Obstructive sleep apnea (adult) (pediatric); F32.9 Major depressive disorder, single episode, unspecified; Z85.038 Personal history of other malignant neoplasm of large intestine; R31.0 Gross hematuria
CPT/HCPCS: 36415; 36430; 71045; 71250; 74018; 74176; 76857; 80053; 82948; 83735; 85014; 85018; 85027; 86850; 86900; 86901; 86923; 88305; 97110; 97116; 97161; 97165; 97530; 97535; A9270; C9113; C9803; J0330; J0690; J1100; J1815; J1940; J2405; J2704; J3010; J7050; J7120; P9016; U0003; U0005